=== PATIENT | female | born 1950 | race Caucasian/White ===

== ENCOUNTER 2025-01-26 16:49 | Observation (INO) ==
--- NOTE | 2025-01-26 17:08 | Emergency Department Note ---
ED Provider Note History of Present Illness Chief Complaint: Visual Disturbance Stated Complaint: STROKE-LIKE SX, SENT BY [facility] Time Seen by Provider: 01/26/25 16:57 Source: patient Mode of arrival: ambulatory Limitations: no limitations Patient is a 74-year-old female who presents to the emergency department with complaints of strokelike symptoms. The patient was referred to the emergency department by her primary care physician after having complaints of difficulty seeing out of her right eye and right sided weakness that has been ongoing for approximately 1 week. Patient is alert and oriented and not having any difficulty speaking but does note that she feels significantly more weak on her right side. Patient is unable to see anything except out of her periphery on her right eye. Patient denies any chest pain or headache at this time. Home Medications Medication Instructions Recorded Confirmed Type albuterol sulfate 90 mcg/actuation 90 mcg inhalation DAILY PRN SOB 01/26/25 01/26/25 History aerosol inhaler atorvastatin 20 mg tablet 20 mg PO HS 01/26/25 01/26/25 History duloxetine 60 mg capsule,delayed 60 mg PO HS 01/26/25 01/26/25 History release hydroxychloroquine 200 mg tablet 200 mg PO BID 01/26/25 01/26/25 History levothyroxine 150 mcg tablet 150 mcg PO QAM 01/26/25 01/26/25 History lisinopril 20 mg tablet 20 mg PO QAM 01/26/25 01/26/25 History metoprolol succinate 100 mg 100 mg PO QAM 01/26/25 01/26/25 History tablet,extended release 24 hr pantoprazole 40 mg tablet,delayed 40 mg PO 3XWK 01/26/25 01/26/25 History release sertraline 25 mg tablet 25 mg PO QAM 01/26/25 01/26/25 History Allergies Allergy/AdvReac Type Severity Reaction Status Date / Time No Known Allergies Allergy Unverified 01/26/25 18:55 Past Med/Surg History Problem List (Updated 01/26/25 @ 18:44 by CHERYL Ha) Weakness (Acute) Stroke-like symptoms (Acute) Social History Smoking Status: Former smoker Preferred Language: Lebanese Feels Safe at Home: Yes Physical Exam Vital Signs Vital Signs - 24 hr 01/26/25 16:50 01/26/25 17:21 Temperature 36.7 C Temperature Source Temporal Artery Scan Pulse Rate 84 75 Respiratory Rate 18 Blood Pressure 164/83 H Blood Pressure Mean 110 Pulse Oximetry 95 Sepsis Recent Fever Within 48 Hours No Sepsis New/Unexplained Change in Mental Status N/A Sepsis Action Taken by Nursing No Action Required VITAL SIGNS - Vital signs and nursing notes were reviewed. GENERAL -74-year-old female appearing their stated age, who is in no acute distress. Communicates well with provider and answers questions appropriately. HEAD - Normocephalic, Atraumatic. No Pleitez's Sign or Raccoon's Eyes. No depressed skull fractures palpable. EYES - PERRL with EOMI bilaterally. Sclera anicteric. Conjunctiva pink and moist with no injection noted. EARS - No deformities of external structures noted on gross examination bilaterally. NOSE - Midline and without cyanosis. No epistaxis or purulent drainage noted. MOUTH/OROPHARYNX - Without perioral cyanosis. Buccal mucosa pink and moist and without leukoplakia. NECK - Neck with FROM. Supple to palpation. No lymphadenopathy noted. LUNGS - Chest wall symmetric without accessory muscle use, intercostals retractions, or central cyanosis. Normal vesicular breath sounds CTA B/L. No wheezes, rales, or rhonchi appreciated. CARDIAC - RRR with S1/S2. No murmur, rubs, or gallops appreciated. EXTREMITIES - No edema present. +3/5 strength noted in right upper and lower extremity. The patient is able to move all extremities but does have noted weakness in her right side. NEUROLOGIC -Sensory intact to light touch throughout. PSYCH - A&Ox3 and cooperates fully with examiner. Pt is very pleasant and interacts well with examiner Course Administered Medications Discontinued Medications Ioversol (Optiray 320 125ml) 114 ml IV ONCE ONE Stop: 01/26/25 18:01 Last Admin: 01/26/25 18:00 Dose: 114 ml Documented By: EAB Ipratropium [place] (Ipratropium [place] Neb Soln 0.02% 0.5mg/2.5ml Vial) 0.5 mg NEB NOW STA Stop: 01/26/25 21:50 Last Admin: 01/26/25 21:57 Dose: 0.5 mg Documented By: TMP Levalbuterol HCl (Levalbuterol 1.25 Mg/3 Ml Neb) 1.25 mg NEB NOW STA Stop: 01/26/25 21:50 Last Admin: 01/26/25 21:57 Dose: 1.25 mg Documented By: TMP Metoprolol Tartrate (Metoprolol Tartrate 1 Mg/Ml Vial) 2.5 mg IV NOW STA Stop: 01/26/25 20:33 Last Admin: 01/26/25 21:44 Dose: 2.5 mg Documented By: KDL Medical Decision Making Differential Diagnosis CVA, TIA, generalized weakness, muscular strain, sprain, among others Medical Records Attestation: I reviewed the patient's medical records. Home Medications was personally reviewed by me Laboratory Data Attestation: I reviewed the patient's lab results. 01/26/25 17:05 01/26/25 17:05 Lab Results 01/26/25 01/26/25 Range/Units 17:05 17:15 WBC 8.02 (4.8-10.8) K/ul RBC 4.34 (4.20-5.40) M/uL Hgb 11.6 L (12.0-16.0) g/dl Hct 36.6 L (37.0-47.0) % MCV 84.3 (80.0-100.0) fL MCH 26.7 (25.0-34.0) pg MCHC 31.7 L (32.0-36.0) g/dL RDW Std Deviation 42.4 (36.4-46.3) fL RDW Coeff of Shin 13.8 (11.5-14.5) % Plt Count 217 (130-400) K/uL MPV 11.2 (9.4-12.4) fL Immature Gran % (Auto) 0.2 % Neut % (Auto) 72.5 % Lymph % (Auto) 19.8 % [place]k % (Auto) 6.7 % Eos % (Auto) 0.4 % Baso % (Auto) 0.4 % Neut # (Auto) 5.81 (1.40-6.50) K/uL Lymph # (Auto) 1.59 (1.20-3.40) K/uL Polk # (Auto) 0.54 (0.11-0.59) K/uL Eos # (Auto) 0.03 (0.00-0.50) K/uL Baso # (Auto) 0.03 (0.00-0.20) K/uL Immature Gran # (Auto) 0.02 (0.01-0.20) K/uL PT 10.6 (9.0-12.0) Seconds INR 1.0 (0.9-1.1) APTT 29 (21-31) Seconds PTT Ratio 1.1 Sodium 144 (136-145) mmol/L Potassium 3.9 (3.5-5.1) mmol/L Chloride 105 (98-107) mmol/L Carbon Dioxide 30 (21-32) mmol/L Anion Gap 9 (3-11) BUN 20 (6-23) mg/dl Creatinine 1.50 H (0.6-1.2) mg/dl Est Cr Clr Drug Dosing 40.8 ml/min eGFR 36.34 BUN/Creatinine Ratio 13.3 (10-20) Glucose 125 H (70-99(Fasting)) mg/dl Calcium 9.7 (8.6-10.3) mg/dl Magnesium 1.9 (1.7-2.4) mg/dl Total Bilirubin 0.5 (0.2-1.0) mg/dl AST 25 (13-39) U/L ALT 18 (7-52) U/L Alkaline Phosphatase 62 (34-104) U/L Troponin I High Sens 5.0 (0-14) pg/ml Total Protein 7.7 (6.0-8.3) gm/dl Albumin 4.3 (3.4-5.0) gm/dl Globulin 3.4 (2.5-4.0) gm/dl Albumin/Globulin Ratio 1.3 (0.9-2) Blood Type B Negative Antibody Screen POSITIVE A Antibody Identification Anti-Fya Antigen Identification Fya Antigen - NEGATIVE Imaging Data Radiologist's Impression: Head CT 01/26/25 17:[address] without contrast CT angiogram of the neck CT angiogram of the brain with contrast Provided History: Neuro deficit Comparison: None Technique: HEAD CT: Using multidetector thin collimation helical acquisition technique, axial, coronal and sagittal CT images from the skull base to the vertex were obtained without intravenous contrast. HEAD and NECK CTA: During rapid bolus intravenous injection of nonionic contrast material, axial images were obtained using thin collimation multidetector helical technique from the base of the neck through the of vertex of the head. This CT angiogram data was reconstructed at thin intervals with mild overlap. 3D reconstructions were obtained. The axial source images, multiplanar reformations, 3D reconstructions in both maximum intensity projection display and volume rendered models were reviewed. Dose reduction techniques were achieved by using automatic exposure control and/or adjustment of mA and/or kV according to patient size and/or use of iterative reconstruction technique. Findings: Head CT: There is no intracranial hemorrhage, mass effect, or midline shift. Desai/white matter differentiation in both cerebral hemispheres is preserved. Ventricles are proportionate to the cerebral sulci. Head CTA demonstrates no aneurysm or stenosis of the major intracranial arteries. Neck CTA demonstrates no stenosis of the major cervical arteries. The origins of the great vessels from the aortic arch are patent. There are patchy nodular opacities throughout the posterior right upper lobe. Impression: 1. Head CTA demonstrates no aneurysm or stenosis of the major intracranial arteries, 2. Neck CTA demonstrates no stenosis of the major cervical arteries. 3. No intracranial hemorrhage on the noncontrast head CT. 4. Patchy nodular opacities throughout the posterior right upper lobe of the lung are favored infectious. Electronically signed by Alan Mendenhall 01-26-2025 6:20 PM Head CTA 01/26/25 17:[address] without contrast CT angiogram of the neck CT angiogram of the brain with contrast Provided History: Neuro deficit Comparison: None Technique: HEAD CT: Using multidetector thin collimation helical acquisition technique, axial, coronal and sagittal CT images from the skull base to the vertex were obtained without intravenous contrast. HEAD and NECK CTA: During rapid bolus intravenous injection of nonionic contrast material, axial images were obtained using thin collimation multidetector helical technique from the base of the neck through the of vertex of the head. This CT angiogram data was reconstructed at thin intervals with mild overlap. 3D reconstructions were obtained. The axial source images, multiplanar reformations, 3D reconstructions in both maximum intensity projection display and volume rendered models were reviewed. Dose reduction techniques were achieved by using automatic exposure control and/or adjustment of mA and/or kV according to patient size and/or use of iterative reconstruction technique. Findings: Head CT: There is no intracranial hemorrhage, mass effect, or midline shift. Desai/white matter differentiation in both cerebral hemispheres is preserved. Ventricles are proportionate to the cerebral sulci. Head CTA demonstrates no aneurysm or stenosis of the major intracranial arteries. Neck CTA demonstrates no stenosis of the major cervical arteries. The origins of the great vessels from the aortic arch are patent. There are patchy nodular opacities throughout the posterior right upper lobe. Impression: 1. Head CTA demonstrates no aneurysm or stenosis of the major intracranial arteries, 2. Neck CTA demonstrates no stenosis of the major cervical arteries. 3. No intracranial hemorrhage on the noncontrast head CT. 4. Patchy nodular opacities throughout the posterior right upper lobe of the lung are favored infectious. Electronically signed by Alan Mendenhall 01-26-2025 6:20 PM Neck CTA 01/26/25 17:[address] without contrast CT angiogram of the neck CT angiogram of the brain with contrast Provided History: Neuro deficit Comparison: None Technique: HEAD CT: Using multidetector thin collimation helical acquisition technique, axial, coronal and sagittal CT images from the skull base to the vertex were obtained without intravenous contrast. HEAD and NECK CTA: During rapid bolus intravenous injection of nonionic contrast material, axial images were obtained using thin collimation multidetector helical technique from the base of the neck through the of vertex of the head. This CT angiogram data was reconstructed at thin intervals with mild overlap. 3D reconstructions were obtained. The axial source images, multiplanar reformations, 3D reconstructions in both maximum intensity projection display and volume rendered models were reviewed. Dose reduction techniques were achieved by using automatic exposure control and/or adjustment of mA and/or kV according to patient size and/or use of iterative reconstruction technique. Findings: Head CT: There is no intracranial hemorrhage, mass effect, or midline shift. Desai/white matter differentiation in both cerebral hemispheres is preserved. Ventricles are proportionate to the cerebral sulci. Head CTA demonstrates no aneurysm or stenosis of the major intracranial arteries. Neck CTA demonstrates no stenosis of the major cervical arteries. The origins of the great vessels from the aortic arch are patent. There are patchy nodular opacities throughout the posterior right upper lobe. Impression: 1. Head CTA demonstrates no aneurysm or stenosis of the major intracranial arteries, 2. Neck CTA demonstrates no stenosis of the major cervical arteries. 3. No intracranial hemorrhage on the noncontrast head CT. 4. Patchy nodular opacities throughout the posterior right upper lobe of the lung are favored infectious. Electronically signed by Alan Mendenhall 01-26-2025 6:25 PM [facility] Narrative Patient is a 74-year-old female who presents to the emergency department with complaints of strokelike symptoms. The patient was referred to the emergency department by her primary care physician after having complaints of difficulty seeing out of her right eye and right sided weakness that has been ongoing for approximately 1 week. Patient is alert and oriented and not having any difficulty speaking but does note that she feels significantly more weak on her right side. Patient is unable to see anything except out of her periphery on her right eye. Patient denies any chest pain or headache at this time. Patient was evaluated by myself and findings were noted in the physical exam above. Patient was ordered IV placement, lab work, urinalysis, and CT of the head with and without contrast. Patient's lab work resulted with a normal white blood cell count of 8.02. The patient's lab work was relatively unremarkable throughout. Patient's hemoglobin and hematocrit were mildly low showed some mild anemia with a hemoglobin of 11.6 hematocrit of 36.6. Patient does not have any significant electrolyte imbalances noted. Patient's troponin was also normal at 5.0. Patient's EKG showed her to be in a normal sinus rhythm with a rate of 78. No evidence of ectopy or elevation. Patient had a CT of the head CT angio of the head and CT angio of the neck and were all interpreted by radiology. The head CTA demonstrated no aneurysm or stenosis of the major intracranial arteries. Neck CTA demonstrated no stenosis of the major cervical arteries. There was no intracranial hemorrhage or subdural hematoma or any abnormalities noted on the noncontrast head CT. Patient's imaging and lab work were both unremarkable although on exam the patient does have notable weakness on her right side. The patient still reporting vision difficulty on that right side. I discussed with the patient that her symptoms would warrant further evaluation and management and that I felt that it would be appropriate for her to be admitted to the hospital for further stroke workup and evaluation. The patient verbalized understanding and was agreeable to this plan, feeling that that would be the most appropriate thing and she felt most comfortable with that plan. I spoke with the [facility] hospitalist group regarding this patient and gave them a full report on the patient's chief complaint, current status and the results of her imaging and lab work. The [facility] hospitalist group was concerned that this should be run by [facility] ophthalmology. I reached out to [facility] to speak with the bowling ball mold assembler. I spoke with Dr. Ann of ophthalmology and gave her a full report on the patient's chief complaint, current status and the results of her imaging and lab work. She advised that she did not believe that the patient needed to have an emergent eye exam or be seen by ophthalmology tonight as her symptoms have been persistent for almost a week. She stated that she does not feel the patient needs to be transferred at this time and felt that the patient could follow-up with the ophthalmology clinic at [place] or here in [place] in the outpatient setting if she could not be evaluated here in the hospital. She noted that she felt it was appropriate for the patient to be admitted to the hospital here for further stroke workup. I have reached back out to the [facility] hospitalist group and let them know what Dr. Ann said and they verbalized understanding and were agreeable to accept the patient for admission under their service. [facility] further evaluation and management of this patient. Impression Stroke-like symptoms, Weakness Discharge Plan Visit Data Chief Complaint: Visual Disturbance Stated Complaint: STROKE-LIKE SX, SENT BY [facility] ED Provider: Clifford Robison ED Midlevel Provider: Aminah Caba Discharge Problem: Stroke-like symptoms, Weakness Patient Disposition: Admitted As Inpatient Condition: Fair Discharge Instructions Interventions: ED Discharge Assessment Last Done: 01/26/25 20:38 ED DC CONDITION Conditon at Discharge Condition at Discharge: Fair
[2025-01-26 17:26] LABS: Hematocrit (blood only) 36.6 % (37.0-47.0); Hemoglobin 11.6 g/dl (12.0-16.0); Immature Granulocytes # (auto) 0.02 K/uL (0.01-0.20); Immature Granulocytes % (auto) 0.2 %; Mean Corpuscular Hemoglobin 26.7 pg (25.0-34.0); Mean Corpuscular Volume 84.3 fL (80.0-100.0); Platelet Count 217 K/uL (130-400); RDW Standard Deviation 42.4 fL (36.4-46.3); Red Blood Count 4.34 M/uL (4.20-5.40); White Blood Count 8.02 K/ul (4.8-10.8)
[2025-01-26 17:44] LABS: Alanine Aminotransferase 18.0 U/L (7-52); Albumin Globulin Ratio 1.3 (0.9-2); Albumin Level 4.3 gm/dl (3.4-5.0); Alkaline Phosphatase 62.0 U/L (34-104); Anion Gap 9.0 (3-11); Bilirubin,Total 0.5 mg/dl (0.2-1.0); Blood Urea Nitrogen 20.0 mg/dl (6-23); Calcium 9.7 mg/dl (8.6-10.3); Carbon Dioxide 30.0 mmol/L (21-32); Chloride 105.0 mmol/L (98-107); Creatinine Clr Calc Pharmacy 40.8 ml/min; Globulin 3.4 gm/dl (2.5-4.0); Glucose 125.0 mg/dl (70-99(Fasting)); Magnesium 1.9 mg/dl (1.7-2.4); Potassium 3.9 mmol/L (3.5-5.1); Sodium 144.0 mmol/L (136-145); Total Protein 7.7 gm/dl (6.0-8.3)
[2025-01-26] MEDS: OPTIRAY 320 125ml IV ONE (18:00)
[2025-01-26 18:02] LABS: INR 1.0 (0.9-1.1); Partial Thromboplastin Time 29 Seconds (21-31); Prothrombin Time 10.6 Seconds (9.0-12.0)
--- NOTE | 2025-01-26 18:21 | CT Scan Report ---
Head CT without contrast CT angiogram of the neck CT angiogram of the brain with contrast Provided History: Neuro deficit Comparison: None Technique: HEAD CT: Using multidetector thin collimation helical acquisition technique, axial, coronal and sagittal CT images from the skull base to the vertex were obtained without intravenous contrast. HEAD and NECK CTA: During rapid bolus intravenous injection of nonionic contrast material, axial images were obtained using thin collimation multidetector helical technique from the base of the neck through the of vertex of the head. This CT angiogram data was reconstructed at thin intervals with mild overlap. 3D reconstructions were obtained. The axial source images, multiplanar reformations, 3D reconstructions in both maximum intensity projection display and volume rendered models were reviewed. Dose reduction techniques were achieved by using automatic exposure control and/or adjustment of mA and/or kV according to patient size and/or use of iterative reconstruction technique. Findings: Head CT: There is no intracranial hemorrhage, mass effect, or midline shift. Desai/white matter differentiation in both cerebral hemispheres is preserved. Ventricles are proportionate to the cerebral sulci. Head CTA demonstrates no aneurysm or stenosis of the major intracranial arteries. Neck CTA demonstrates no stenosis of the major cervical arteries. The origins of the great vessels from the aortic arch are patent. There are patchy nodular opacities throughout the posterior right upper lobe. Impression: 1. Head CTA demonstrates no aneurysm or stenosis of the major intracranial arteries, 2. Neck CTA demonstrates no stenosis of the major cervical arteries. 3. No intracranial hemorrhage on the noncontrast head CT. 4. Patchy nodular opacities throughout the posterior right upper lobe of the lung are favored infectious. Electronically signed by Alan Mendenhall 01-26-2025 6:20 PM
--- NOTE | 2025-01-26 19:34 | History & Physical Report ---
Date of Service January 26, 2025 Assessment & Plan (1) Stroke-like symptoms: (2) Weakness: Plan: 74 year old female with history of HTN, CKD 3, HLD, SLE, and other problems noted below presenting with progressive R eye vision loss and some R sided weakness since Wednesday. STROKE LIKE SYMPTOMS: R SIDED VISION LOSS AND R SIDED WEAKNESS 1. Head CTA demonstrates no aneurysm or stenosis of the major intracranial arteries, 2. Neck CTA demonstrates no stenosis of the major cervical arteries. 3. No intracranial hemorrhage on the noncontrast head CT. 4. Patchy nodular opacities throughout the posterior right upper lobe of the lung are favored infectious. will initiate stroke protocol including Brain MRI, Echo, etc start ASA 81mg and Plavix 75mg po daily already on Atorvastatin PT/OT evaluation Neurology consult ER HARMAN Caba discussed with [facility] service. They recommend inpatient evaluation for possible CVA. Since symptoms commenced a few days ago, urgent inpatient ophthalmologic evaluation and intervention not recommended at this time. They do recommend patient ff up with Ophthalmology soon after discharge. RIGHT UPPER LOBE PNEUMONIA seen on CT head and neck denies cough, fever/chills respiratory panel ordered, MRSA swab start Augmentin and Doxycycline other chronic medical problems: HYPERTENSION-- continue Lisinopril CKD 3- crea at baseline HLD- continue Atorvastatin SLE- continue Plaquenil MAHONEY'S ESOPHAGUS- Protonix DEPRESSION- continue Duloxetine, Sertraline NOCTURNAL HYPOXEMIA- 2L NC at HS DVT Prophylaxis SCDs for now Disposition admit to Telemetry Full Code total of 60 minutes spent discussing with ER provider, reviewing records, patient history and exam, etc Mirza Sanchez MD History of Present Illness Chief Complaint: progressive R eye vision loss and some R sided weakness since Wednesday Primary Care Provider: Maribell Singh DO 74 year old female with history of HTN, CKD 3, HLD, SLE, and other problems noted below presenting with progressive R eye vision loss and some R sided weakness since Wednesday. Patient was seen by her PCP in the office today and was sent over to the ER for evaluation for possible CVA. Patient reports that since Wednesday she has been having blurring of vision on the R eye while using the computer. By Wednesday, she could barely see with her R eye. Denies eye pain. She reports mild R sided weakness but this is chronic for years attributed to cervical spine and lumbar spine issues. No other new focal neurologic deficit reported. Upon ER arrival, BP 164/83, afebrile. CT head, CT angio head and neck: 1. Head CTA demonstrates no aneurysm or stenosis of the major intracranial arteries, 2. Neck CTA demonstrates no stenosis of the major cervical arteries. 3. No intracranial hemorrhage on the noncontrast head CT. 4. Patchy nodular opacities throughout the posterior right upper lobe of the lung are favored infectious. ER HARMAN Caba discussed with [facility] service. They recommend inpatient evaluation for possible CVA. Since symptoms commenced a few days ago, urgent inpatient ophthalmologic evaluation and intervention not recommended at this time. They do recommend patient ff up with Ophthalmology soon after discharge. Allergies Allergy/AdvReac Type Severity Reaction Status Date / Time No Known Allergies Allergy Unverified 01/26/25 18:55 Home Medications Medication Instructions Recorded Confirmed Type albuterol sulfate 90 mcg/actuation 90 mcg inhalation DAILY PRN SOB 01/26/25 01/26/25 History aerosol inhaler atorvastatin 20 mg tablet 20 mg PO HS 01/26/25 01/26/25 History duloxetine 60 mg capsule,delayed 60 mg PO HS 01/26/25 01/26/25 History release hydroxychloroquine 200 mg tablet 200 mg PO BID 01/26/25 01/26/25 History levothyroxine 150 mcg tablet 150 mcg PO QAM 01/26/25 01/26/25 History lisinopril 20 mg tablet 20 mg PO QAM 01/26/25 01/26/25 History metoprolol succinate 100 mg 100 mg PO QAM 01/26/25 01/26/25 History tablet,extended release 24 hr pantoprazole 40 mg tablet,delayed 40 mg PO 3XWK 01/26/25 01/26/25 History release sertraline 25 mg tablet 25 mg PO QAM 01/26/25 01/26/25 History Past Med/Surg History Problem List (Updated 01/26/25 @ 18:44 by CHERYL Ha) Weakness (Acute) Stroke-like symptoms (Acute) Social History Smoking Status: Former smoker Preferred Language: Slovenian Feels Safe at Home: Yes Review of Systems Review of Systems: all noted and negative except for above Physical Exam Physical Exam: General- oriented x 3, not in distress, speaks in sentences with no effort or accessory muscle use Head- atraumatic Eyes- PERRL, EOMI, anicteric ENT- oropharynx clear Neck- supple, no JVD, no adenopathy, no thyromegaly; carotids +2/2, no bruits appreciated Lungs- mild rhonchi and wheeze R upper lung, clear on the left Heart- normal rate, regular rhythm; no murmur, no gallop, no rub appreciated Abdomen- normal bowel sounds, nondistended, soft, nontender, no masses or hepatosplenomegaly Extremities- no pretibial edema, no calf tenderness; peripheral pulses intact Neuro- alert, oriented x 3; R eye- only has R peripheral vision 25% of visual field, otherwise CN 2-12 grossly intact; motor RUE and RLE 4/5 , L 5/5;sensation 100% on all extremities; no other gross focal neurologic deficits Skin- warm & dry Results & Data Results & Data Vital Signs (Past 12 Hours) Vital Signs Temp Pulse Pulse Resp BP BP Pulse Ox 01/26/25 19:31 174/92 H 01/26/25 19:26 67 20 192/111 H 96 01/26/25 19:26 96 01/26/25 17:21 75 01/26/25 16:50 36.7 C 84 18 164/83 H 95 O2 Del Method 01/26/25 19:31 01/26/25 19:26 Room Air 01/26/25 19:26 Room Air 01/26/25 17:21 01/26/25 16:50 all noted and reviewed including below Code Status & VTE Plan VTE Prophylaxis Plan VTE Prophylaxis will be ordered: Yes
[2025-01-26] MEDS ORDERED: ALBUTEROL HFA 8 GM INHALER INH PRN (19:59)
[2025-01-26] MEDS ORDERED: PHARMACIST DISCHARGE MED REC CONSULT PRN (21:19)
[2025-01-26] MEDS ORDERED: ACETAMINOPHEN 325 MG TAB PO PRN (21:19)
[2025-01-26] MEDS: METOPROLOL TARTRATE 1 MG/ML VIAL IV STA (21:44)
[2025-01-26] MEDS ORDERED: LEVALBUTEROL 1.25 MG/3 ML NEB NEB PRN (21:49)
[2025-01-26] MEDS ORDERED: IPRATROPIUM BROMIDE NEB SOLN 0.02% 0.5MG/2.5ML VIAL NEB PRN (21:49)
[2025-01-26] MEDS: LEVALBUTEROL 1.25 MG/3 ML NEB NEB STA (21:57)
[2025-01-26] MEDS: IPRATROPIUM BROMIDE NEB SOLN 0.02% 0.5MG/2.5ML VIAL NEB STA (21:57)
[2025-01-26 22:12] LABS: Chlamydia pneumoniae PCR Not Detected (NotDetected); Coronavirus 229E PCR Not Detected (NotDetected); Coronavirus CoV-2 (COVID19)PCR Not Detected (NotDetected); Coronavirus HKU1 PCR Not Detected (NotDetected); Coronavirus NL63 PCR Not Detected (NotDetected); Coronavirus OC43PCR Not Detected (NotDetected); Human Metapneumovirus PCR Not Detected (NotDetected); Parainfluenza Virus 1 PCR Not Detected (NotDetected); Parainfluenza Virus 2 PCR Not Detected (NotDetected); Parainfluenza Virus 3 PCR Not Detected (NotDetected); Parainfluenza Virus 4 PCR Not Detected (NotDetected); Respiratory Syncytial VirusPCR Not Detected (NotDetected); Rhinovirus/Enterovirus PCR Not Detected (NotDetected)
[2025-01-26 22:14] LABS: Appearance Urine Clear (Clear); Bacteria Urine Automated 4+ (None Seen); Cast Urine Automated 0-2 /lpf (0-2); Glucose Urine UA Negative (Negative); WBC Urine Automated 0-5 /hpf (0-5)
[2025-01-26] MEDS: ATORVASTATIN 20 MG TAB PO SCH (22:18)
[2025-01-26] MEDS: ASPIRIN 81 MG ECTAB PO SCH (22:19)
[2025-01-26] MEDS: HYDROXYCHLOROQUINE SULFATE 200 MG TAB PO SCH (22:19)
[2025-01-26] MEDS: DOXYCYCLINE HYCLATE 100 MG CAP PO SCH (22:19)
[2025-01-26] MEDS: CLOPIDOGREL BISULFATE 75 MG TAB PO SCH (22:19)
--- NOTE | 2025-01-27 00:20 | Magnetic Resonance Report ---
Exam(s): MRI HEAD Without Contrast EXAM: MR Head Without Intravenous Contrast CLINICAL HISTORY: Reason for exam: r eye loss of vision, r sided weakness. TECHNIQUE: Magnetic resonance images of the head/brain without intravenous contrast in multiple planes. COMPARISON: Head CT 02/22/2025 FINDINGS: Brain: Unremarkable. No mass. No hemorrhage. No acute infarct. Ventricles: Unremarkable. No ventriculomegaly. Bones/joints: Unremarkable. No acute fracture. Sinuses: Unremarkable as visualized. No acute sinusitis. Mastoid air cells: Unremarkable as visualized. No mastoid effusion. Orbits: Unremarkable as visualized. IMPRESSION: No acute intracranial abnormality. Electronically signed by: Babar Pop MD 01/27/25 00:19 AM
[2025-01-27] MEDS: LEVOTHYROXINE SODIUM 150 MCG TABLET PO SCH (05:30)
[2025-01-27 06:10] LABS: Hematocrit (blood only) 35.1 % (37.0-47.0); Hemoglobin 10.9 g/dl (12.0-16.0); Immature Granulocytes # (auto) 0.01 K/uL (0.01-0.20); Immature Granulocytes % (auto) 0.2 %; Mean Corpuscular Hemoglobin 26.7 pg (25.0-34.0); Mean Corpuscular Volume 86.0 fL (80.0-100.0); Platelet Count 165 K/uL (130-400); RDW Standard Deviation 43.6 fL (36.4-46.3); Red Blood Count 4.08 M/uL (4.20-5.40); White Blood Count 6.60 K/ul (4.8-10.8)
[2025-01-27 06:25] LABS: Alanine Aminotransferase 16.0 U/L (7-52); Albumin Globulin Ratio 1.3 (0.9-2); Albumin Level 3.8 gm/dl (3.4-5.0); Alkaline Phosphatase 53.0 U/L (34-104); Anion Gap 5.0 (3-11); Bilirubin,Total 0.5 mg/dl (0.2-1.0); Blood Urea Nitrogen 19.0 mg/dl (6-23); Calcium 9.3 mg/dl (8.6-10.3); Carbon Dioxide 31.0 mmol/L (21-32); Chloride 104.0 mmol/L (98-107); Cholesterol 120.0 mg/dl (0-200); Creatinine Clr Calc Pharmacy 44.4 ml/min; Globulin 3.0 gm/dl (2.5-4.0); Glucose 96.0 mg/dl (70-99(Fasting)); HDL Cholesterol 41.0 mg/dl; Potassium 3.8 mmol/L (3.5-5.1); Sodium 140.0 mmol/L (136-145); Total Protein 6.8 gm/dl (6.0-8.3); Triglycerides 142.0 mg/dl (0-150)
[2025-01-27 07:40] LABS: Hemoglobin A1C 5.5 % (4.5-5.6)
[2025-01-27] MEDS: ADVANCED PROBIOTIC 625 MG CAPSULE PO SCH (08:26)
[2025-01-27] MEDS: METOPROLOL SUCC 50MG EXT REL TAB PO SCH (08:26)
[2025-01-27] MEDS: SERTRALINE HCL 50 MG TABLET PO SCH (08:27)
[2025-01-27] MEDS: AMOXICILLIN/CLAVULANATE 875 MG TAB PO SCH (09:37)
[2025-01-27 10:58] VITALS: RESP 21
--- NOTE | 2025-01-27 11:49 | Electrocardiogram Report ---
Test Reason : Blood Pressure : */* mmHG Vent. Rate : 78 BPM Atrial Rate : 78 BPM P-R Int : 180 ms QRS Dur : 106 ms QT Int : 420 ms P-R-T Axes : 64 -17 64 degrees QTcB Int : 478 ms Normal sinus rhythm Normal ECG No previous ECGs available Confirmed by Michele Daniels ([id number]) on 01/27/2025 11:48:34 AM Referred By: Confirmed By: Michele Daniels
--- NOTE | 2025-01-27 12:38 | XCELERA ---
[id number]
--- NOTE | 2025-01-27 15:35 | Neurology Consultation ---
Date of Consultation January 27, 2025 Assessment & Plan (1) Branch retinal artery occlusion of right eye: Right Nasal visual field cut suggesting a possible branch retina artery occlusion of the right eye MRI of the brain was reviewed and shows no acute ischemic changes Plan Agree with using aspirin and Plavix in addition to high-dose statin for 21 days can be followed later by a single antiplatelet agent preferably Plavix. Recommend a Zio patch upon discharge. Follow-up with ophthalmology as outpatient. PT OT. Telehealth Consultation Telehealth Information Telehealth Information: I performed this visit using a real-time telehealth connection between my location and the patients location ([facility]). After connecting through interactive tele-video, patient was identified by name and date of and/or wristband check.Patient (or authorized healthcare patient intake representative) was informed that this was a telemedicine visit and it was being conducted confidentially over secure lines. My office door was closed and no one else was present in the room with me.Patient (or authorized healthcare patient intake representative) provided consent to proceed with the visit, expressed an understanding of privacy and security of the telemedicine visit, and gave permission to have a hospital patient intake representative in the room in order to assist with the visit and to conduct portions of the visit, as needed. I informed the patient (or authorized healthcare patient intake representative) that I reviewed their record and presented the opportunity for them to ask any questions regarding the visit today. The patient agreed to participate. History of Present Illness Reason for Consultation: Visual changes Requesting Physician: Isaac Carver DO Attending Physician: Isaac Carver DO History of Present Illness 74-year-old female patient with an extensive PMH including HTN, CKD stage III, SLE, right hand trigger finger, ulnar neuropathy status post transposition with chronic right upper extremity numbness, chronic polyarthritis. The patient presented to the hospital after acute onset of visual changes affecting the right eye where she feels that the left half of her right eye (nasal side )is black and she can see only outward vision. This started about 2 days ago the patient was evaluated by her development executive who sent her to the emergency room to be evaluated for stroke/branch retinal artery occlusion. The patient tells me that her vision remains the same, she did report right upper extremity numbness that is chronic and has been present present for about 4 to 5 years she does not understand why, however however she reports a surgery of ulnar nerve transposition. She also received an injection in her right knee and occasionally reports numbness in her right lower extremity. She denies any new focal neurological deficit except for the visual changes. Allergies Allergy/AdvReac Type Severity Reaction Status Date / Time No Known Allergies Allergy Unverified 01/26/25 18:55 Home Medications Medication Instructions Recorded Confirmed Type albuterol sulfate 90 mcg/actuation 90 mcg inhalation DAILY PRN SOB 01/26/25 01/26/25 History aerosol inhaler atorvastatin 20 mg tablet 20 mg PO HS 01/26/25 01/26/25 History duloxetine 60 mg capsule,delayed 60 mg PO HS 01/26/25 01/26/25 History release hydroxychloroquine 200 mg tablet 200 mg PO BID 01/26/25 01/26/25 History levothyroxine 150 mcg tablet 150 mcg PO QAM 01/26/25 01/26/25 History lisinopril 20 mg tablet 20 mg PO QAM 01/26/25 01/26/25 History metoprolol succinate 100 mg 100 mg PO QAM 01/26/25 01/26/25 History tablet,extended release 24 hr pantoprazole 40 mg tablet,delayed 40 mg PO 3XWK 01/26/25 01/26/25 History release sertraline 25 mg tablet 25 mg PO QAM 01/26/25 01/26/25 History Patient History Social History Smoking Status: Former smoker Smoking End Date: 2008; Second Hand Exposure: No; Hx Alcohol Use: No Hx Substance Use: No Preferred Language: Slovak Communication Ability: Effective Nuclear Technologist Required: No Beliefs That Will Affect Care: None Current Living Situation: Alone Current Living Situation Comment: Lives at house alone- son lives nearby in [facility] Feels Safe at Home: Yes Safety Concerns: Feels Safe At This Time Assistive Devices: Cane, Denture - Upper, Denture - Lower and Walker Review of Systems negative except for the points mentioned in HPI Physical Exam General Constitutional: Appearance normally developed Head and face: normocephalic and atraumatic Eyes: no ptosis, no anisocoria, and no dysconjugate gaze Respiratory: normal effort Cardiovascular: regular rhythm and regular rate Abdomen: non distended Skin: no rashes, lesions, or ulcers noted Psychiatric: normal judgement and insight, normal mood, and normal affect NEUROLOGIC EXAMINATION: Mental Status:alert, oriented to time, place, person, normal recent memory, normal remote memory, normal attention span, normal concentration, normal language and normal fund of knowledge Cranial Nerves: CN 2 - nasal field defect of the right eye confrontation and pupils round, equal, reactive to light CN 3, 4, 6 - extra-ocular movements intact and no nystagmus CN 5 - facial sensation intact CN 7 - no facial asymmetry CN 8 - intact hearing CN 9, 10 - palate symmetric, normal gag CN 11 - good shoulder shrug CN 12 - tongue midline MOTOR: Strength was at least antigravity throughout, Pronator drift was absent and There were no abnormal movements SENSATION: decreassed sensation ove the right arm, not the forarm,. right g GAIT: did not test COORDINATION: no ataxia with finger to nose testing and heel to ruiz testing REFLEXES: cannot assess over telemedicine NIH Stroke Scale: 1a. Level of Consciousness: alert = 0 1b. LOC Questions: (month, age): both correct = 0 1c. LOC Commands (open and close eyes, make fist and let go using non-paretic hand): obeys both correctly = 0 2. Best Gaze (eyes open and patient follows examiner's finger or face): normal = 0 3. Visual (visual threat or finger counting in each quadrant): hemianopsia = 2 4. Facial Palsy (show teeth, raise eye brows and squeeze eyes shut, or grimace symmetry in a comatose patient): normal = 0 5a. Motor Arm (extend arm (palms down) to 90 degrees and score drift/movement (10 seconds) - Left: no drift = 0 5b. Motor Arm: (extend arm (palms down) to 90 degrees and score drift/movement (10 seconds) - Right: no drift = 0 6a. Motor Leg (elevate leg 30 degrees and score drift/ movement (5 seconds) - Left: no drift = 0 6b. Motor Leg (elevate leg 30 degrees and score drift/ movement (5 seconds) - Right: no drift = 0 7. Limb Ataxia (finger to nose, heel down ruiz): absent = 0 8. Sensory (pin prick to face, arm, trunk and leg, compare side to side):decreased sensation :1 9. Best Language: no aphasia = 0 10. Dysarthria (evaluate speech clarity by patient repeating listed words): normal articulation = 0 11. Extinction and Inattention: no neglect = 0 Total: 3 Results & Data Vital Signs (Past 12 Hours) Vital Signs Temp Pulse Pulse Resp BP Pulse Ox O2 Del Method 01/27/25 13:01 66 01/27/25 10:57 36.8 C 62 21 125/67 93 Room Air 01/27/25 08:00 60 01/27/25 08:00 Room Air 01/27/25 07:10 36.9 C 60 20 150/81 H 92 Room Air Laboratory Results Laboratory Results - last 24 hr 01/26/25 01/26/25 01/26/25 17:05 17:15 20:43 WBC 8.02 RBC 4.34 Hgb 11.6 L Hct 36.6 L MCV 84.3 MCH 26.7 MCHC 31.7 L RDW Std Deviation 42.4 RDW Coeff of Shin 13.8 Plt Count 217 MPV 11.2 Immature Gran % (Auto) 0.2 Neut % (Auto) 72.5 Lymph % (Auto) 19.8 [place] % (Auto) 6.7 Eos % (Auto) 0.4 Baso % (Auto) 0.4 Neut # (Auto) 5.81 Lymph # (Auto) 1.59 [place] # (Auto) 0.54 Eos # (Auto) 0.03 Baso # (Auto) 0.03 Immature Gran # (Auto) 0.02 PT 10.6 INR 1.0 APTT 29 PTT Ratio 1.1 Sodium 144 Potassium 3.9 Chloride 105 Carbon Dioxide 30 Anion Gap 9 BUN 20 Creatinine 1.50 H Est Cr Clr Drug Dosing 40.8 eGFR 36.34 BUN/Creatinine Ratio 13.3 Glucose 125 H Estimat Average Glucose Hemoglobin A1c Calcium 9.7 Magnesium 1.9 Total Bilirubin 0.5 AST 25 ALT 18 Alkaline Phosphatase 62 Troponin I High Sens 5.0 Total Protein 7.7 Albumin 4.3 Globulin 3.4 Albumin/Globulin Ratio 1.3 Triglycerides Cholesterol LDL Cholesterol, Calc VLDL Cholesterol, Calc HDL Cholesterol Cholesterol/HDL Ratio Procalcitonin Urine Color Urine Appearance Urine pH Ur Specific [place] Urine Protein Urine Glucose (UA) Urine Ketones Urine Blood Urine Nitrite Urine Bilirubin Urine Urobilinogen Ur Leukocyte Esterase Urine WBC (Auto) Urine RBC (Auto) U Hyaline Cast (Auto) U Epithel Cells (Auto) Urine Bacteria (Auto) Urine Comment Nasal Screen MRSA (PCR) Negative Adenovirus (PCR) Not Detected B. pertussis DNA (PCR) Not Detected B.parapertussis DNA PCR Not Detected C. pneumoniae DNA (PCR) Not Detected Coronavirus OC43 (PCR) Not Detected Coronavirus HKU1 (PCR) Not Detected Coronavirus 229E (PCR) Not Detected SARS-CoV-2 (PCR) Not Detected Coronavirus NL63 (PCR) Not Detected Human Metapneumovir PCR Not Detected Influenza Type A (PCR) Not Detected Influenza Type B (PCR) Not Detected M. pneumoniae (PCR) Not Detected Parainfluenza 1 (PCR) Not Detected Parainfluenza 2 (PCR) Not Detected Parainfluenza 3 (PCR) Not Detected Parainfluenza 4 (PCR) Not Detected RSV (PCR) Not Detected Entero/Rhino (PCR) Not Detected Blood Type B Negative Blood Type Recheck Antibody Screen POSITIVE A Antibody Identification Anti-Fya Antibody ID Comment Pending Antigen Identification Fya Antigen - NEGATIVE 01/26/25 01/27/25 01/27/25 Unknown 05:18 07:30 WBC 6.60 RBC 4.08 L Hgb 10.9 L Hct 35.1 L MCV 86.0 MCH 26.7 MCHC 31.1 L RDW Std Deviation 43.6 RDW Coeff of Shin 14.0 Plt Count 165 MPV 11.1 Immature Gran % (Auto) 0.2 Neut % (Auto) 67.2 Lymph % (Auto) 21.7 [place] % (Auto) 9.5 Eos % (Auto) 1.1 Baso % (Auto) 0.3 Neut # (Auto) 4.44 Lymph # (Auto) 1.43 [place] # (Auto) 0.63 H Eos # (Auto) 0.07 Baso # (Auto) 0.02 Immature Gran # (Auto) 0.01 PT INR APTT PTT Ratio Sodium 140 Potassium 3.8 Chloride 104 Carbon Dioxide 31 Anion Gap 5 BUN 19 Creatinine 1.38 H Est Cr Clr Drug Dosing 44.4 eGFR 40.17 BUN/Creatinine Ratio 13.8 Glucose 96 Estimat Average Glucose 111 Hemoglobin A1c 5.5 Calcium 9.3 Magnesium Total Bilirubin 0.5 AST 20 ALT 16 Alkaline Phosphatase 53 Troponin I High Sens Total Protein 6.8 Albumin 3.8 Globulin 3.0 Albumin/Globulin Ratio 1.3 Triglycerides 142 Cholesterol 120 LDL Cholesterol, Calc 51 VLDL Cholesterol, Calc 28 HDL Cholesterol 41 Cholesterol/HDL Ratio 2.9 Procalcitonin 0.03 Urine Color Yellow Urine Appearance Clear Urine pH 7.0 Ur Specific [place] > 1.045 H Urine Protein Negative Urine Glucose (UA) Negative Urine Ketones Negative Urine Blood Negative Urine Nitrite Positive A Urine Bilirubin Negative Urine Urobilinogen Negative Ur Leukocyte Esterase Trace H Urine WBC (Auto) 0-5 Urine RBC (Auto) 3-5 H U Hyaline Cast (Auto) 0-2 U Epithel Cells (Auto) 3-5 H Urine Bacteria (Auto) 4+ H Urine Comment Nasal Screen MRSA (PCR) Adenovirus (PCR) B. pertussis DNA (PCR) B.parapertussis DNA PCR C. pneumoniae DNA (PCR) Coronavirus OC43 (PCR) Coronavirus HKU1 (PCR) Coronavirus 229E (PCR) SARS-CoV-2 (PCR) Coronavirus NL63 (PCR) Human Metapneumovir PCR Influenza Type A (PCR) Influenza Type B (PCR) M. pneumoniae (PCR) Parainfluenza 1 (PCR) Parainfluenza 2 (PCR) Parainfluenza 3 (PCR) Parainfluenza 4 (PCR) RSV (PCR) Entero/Rhino (PCR) Blood Type Blood Type Recheck B Negative Antibody Screen Antibody Identification Antibody ID Comment Antigen Identification Diagnostic Findings Workup so far included CT scan of the head that showed no acute ischemic injuries. CTA showed scattered atherosclerotic disease does have atherosclerosis within the bifurcations without any significant stenosis. MRI of the brain shows no acute ischemic changes. Chronic microangiopathy. Echocardiogram shows LVEF 50-60%, grade 1 diastolic dysfunction, nondilated cardiac chambers, bubble study is negative. EKG is NSR. Medications Administered Home Medications Medication Instructions Recorded Confirmed Last Taken albuterol sulfate 90 mcg/actuation 90 mcg inhalation DAILY PRN SOB 01/26/25 01/26/25 Unknown aerosol inhaler atorvastatin 20 mg tablet 20 mg PO HS 01/26/25 01/26/25 Unknown duloxetine 60 mg capsule,delayed 60 mg PO HS 01/26/25 01/26/25 Unknown release hydroxychloroquine 200 mg tablet 200 mg PO BID 01/26/25 01/26/25 01/26/25 levothyroxine 150 mcg tablet 150 mcg PO QAM 01/26/25 01/26/25 01/26/25 lisinopril 20 mg tablet 20 mg PO QAM 01/26/25 01/26/25 01/26/25 metoprolol succinate 100 mg 100 mg PO QAM 01/26/25 01/26/25 01/26/25 tablet,extended release 24 hr pantoprazole 40 mg tablet,delayed 40 mg PO 3XWK 01/26/25 01/26/25 Unknown release sertraline 25 mg tablet 25 mg PO QA 01/26/25 01/26/25 01/26/25 Active Medications Generic Name Dose Route Start Last Admin Trade Name Rossi PRN Reason Stop Dose Admin Amoxicillin/Clavulanate Potassium 1 tab 01/27/25 08:00 01/27/25 09:37 Amoxicillin/Clavulanate 875 Mg Tab PO 02/01/25 07:59 1 tab BIDM WENDY Administration Protocol Aspirin 81 mg 01/26/25 20:00 01/26/25 22:19 Aspirin 81 Mg Ectab PO 02/25/25 19:59 81 mg Q24H WENDY Administration Atorvastatin Calcium 20 mg 01/26/25 21:00 01/26/25 22:18 Atorvastatin 20 Mg Tab PO 02/25/25 20:59 20 mg HS WENDY Administration Clopidogrel Bisulfate 75 mg 01/26/25 21:00 01/26/25 22:19 Clopidogrel Bisulfate 75 Mg Tab PO 02/25/25 20:59 75 mg Q24H WENDY Administration Doxycycline Hyclate 100 mg 01/26/25 21:00 01/27/25 08:26 Doxycycline Hyclate 100 Mg Cap PO 01/31/25 20:59 100 mg BID WENDY Administration Duloxetine HCl 60 mg 01/26/25 21:00 01/26/25 22:19 Duloxetine Hcl 60 Mg Cap PO 02/25/25 20:59 60 mg HS WENDY Administration Hydroxychloroquine Sulfate 200 mg 01/26/25 21:00 01/27/25 08:26 Hydroxychloroquine Sulfate 200 Mg Tab PO 02/25/25 20:59 200 mg BID WENDY Administration Lactobacillus Acidophilus 1,250 mg 01/27/25 09:00 01/27/25 08:26 Advanced Probiotic 625 Mg Capsule PO 02/26/25 08:59 1,250 mg DAILY WENDY Administration Levothyroxine Sodium 150 mcg 01/27/25 06:30 01/27/25 05:30 Levothyroxine Sodium 150 Mcg Tablet PO 02/26/25 06:29 150 mcg DAILYBB WENDY Administration Lisinopril 20 mg 01/27/25 09:00 01/27/25 08:26 Lisinopril 20 Mg Tab PO 02/26/25 08:59 20 mg QAM WENDY Administration Metoprolol Succinate 100 mg 01/27/25 09:00 01/27/25 08:26 Metoprolol Succ 50mg Ext Rel Tab PO 02/26/25 08:59 100 mg QAM WENDY Administration Pantoprazole Sodium 40 mg 01/27/25 09:00 01/27/25 08:26 Pantoprazole 40 Mg Tab PO 02/26/25 08:59 40 mg [id number] WENDY Administration Sertraline HCl 25 mg 01/27/25 09:00 01/27/25 08:27 Sertraline Hcl 50 Mg Tablet PO 02/26/25 08:59 25 mg QAM WENDY Administration
[2025-01-27 15:53] VITALS: BP 164/94; PULSE 62; TEMP 98.1; O2SAT 92
[2025-01-27] MEDS ORDERED: STROKE PATIENT DISCHARGE STA (16:43)
--- NOTE | 2025-01-27 16:51 | Discharge Summary ---
Discharge Summary Date of Service January 27, 2025 Principal Dx & Hospital Course #1 = Principal Diagnosis (1) Stroke-like symptoms: (2) Weakness: 74 year old female with history of HTN, CKD 3, HLD, SLE, presents with progressive R eye vision loss x 5 days. There was documentation of RUE weakness however patient states her RUE is weak due to arthritis and this has been stable for years. She notified her PCP and was directed to ED yesterday. CTH CTA wi thout acute intracranial pathology. MRI brain without acute pathology. TTE essentially normal other than diastolic dysfunction grade I. 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 Neuro recommends DAPT x 21 days. She will then continue ASA monotherapy. her lipitor increased to 40mg daily. PT recommending rollator and home care. patient states she already has these services. Of note, the CT neck incidentally showed upper lobe infiltrates. she was placed on augmentin+ doxy yesterday on admission. She was completely asymptomatic. no fever or leukocytosis. Procal checked this AM and is normal. There is absolutely no role in abx in this incidental finding. she was advised to ask her PCP for a dedicated CT w/o contrast in 4 weeks to document resolution. She was instructed to f/u with optho DESIRAE, preferably this week. She will f/u with neuro as OP as well. She feels well today and wishes to go home. She has no complaints other than her R eye vision loss. She does not drive and does not own a car. vitals and labs are stable for dc home. Notes For Next Care Provider Medication Changes From Visit DAPT x 21 days, then ASA monotherapy Lipitor increased to 40 Admission HPI Per Admitting Provider 74 year old female with history of HTN, CKD 3, HLD, SLE, and other problems noted below presenting with progressive R eye vision loss and some R sided weakness since Wednesday. Patient was seen by her PCP in the office today and was sent over to the ER for evaluation for possible CVA. Patient reports that since Wednesday she has been having blurring of vision on the R eye while using the computer. By Wednesday, she could barely see with her R eye. Denies eye pain. She reports mild R sided weakness but this is chronic for years attributed to cervical spine and lumbar spine issues. No other new focal neurologic deficit reported. Upon ER arrival, BP 164/83, afebrile. CT head, CT angio head and neck: 1. Head CTA demonstrates no aneurysm or stenosis of the major intracranial arteries, 2. Neck CTA demonstrates no stenosis of the major cervical arteries. 3. No intracranial hemorrhage on the noncontrast head CT. 4. Patchy nodular opacities throughout the posterior right upper lobe of the lung are favored infectious. ER HARMAN Caba discussed with [facility] Ophthalmology service. They recommend inpatient evaluation for possible CVA. Since symptoms commenced a few days ago, urgent inpatient ophthalmologic evaluation and intervention not recommended at this time. They do recommend patient ff up with Ophthalmology soon after discharge. Discharge Exam Vitals and labs reviewed General: Well appearing, NAD HEENT: EOMI, PERRLA Neck: Supple Cardiac: RRR no rubs gallops or murmurs Lungs: CTA no rhonchi wheezing or rales Abd: S NT ND BS positive : Deffered MSK: Full ROM. No obvious deformities Ext: No Edema cyanosis Skin: Warm, Dry Neuro: AOx3 No weakness or paresthesia. Decreased acuity R eye Psych: Normal Mood Updated Medication List Medication Instructions Recorded Confirmed Type albuterol sulfate 90 mcg/actuation 90 mcg inhalation DAILY PRN SOB 01/26/25 01/26/25 History aerosol inhaler atorvastatin 20 mg tablet 20 mg PO HS 01/26/25 01/26/25 History duloxetine 60 mg capsule,delayed 60 mg PO HS 01/26/25 01/26/25 History release hydroxychloroquine 200 mg tablet 200 mg PO BID 01/26/25 01/26/25 History levothyroxine 150 mcg tablet 150 mcg PO QAM 01/26/25 01/26/25 History lisinopril 20 mg tablet 20 mg PO QAM 01/26/25 01/26/25 History metoprolol succinate 100 mg 100 mg PO QAM 01/26/25 01/26/25 History tablet,extended release 24 hr pantoprazole 40 mg tablet,delayed 40 mg PO 3XWK 01/26/25 01/26/25 History release sertraline 25 mg tablet 25 mg PO QAM 01/26/25 01/26/25 History aspirin 81 mg tablet,delayed 81 mg PO Q24H 30 days #30 tabs 01/27/25 Rx release atorvastatin 40 mg tablet (Lipitor) 40 mg PO HS 30 days #30 tabs 01/27/25 Rx clopidogrel 75 mg tablet 75 mg PO Q24H 21 days #21 tabs 01/27/25 Rx Hospital Stay Data Consultations 01/26/25 19:32 ED Decision to Admit Stat 01/26/25 21:19 Consult Neurology Routine Diagnostic Imagining Performed 01/26/25 17:02 CT angio head w con Stat CT angio neck with con Stat CT head/brain wo con Stat 01/26/25 21:19 MR brain wo con Routine Pending Results Patient Have Any Pending Studies at Discharge: No Discharge Instructions Given to Patient (Per Discharging Provider) You were admitted for R eye loss of vision. Your MRI brain was negative for stroke. Your neurologist believes you the artery supplying blood to your eye is occluded. 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 Please take aspirin and plavix for 21 days, then stop taking plavix and continue aspirin. Increase the dose of your lipitor to 40mg daily. Call your PCP's office to get a Zio patch (cardiac catheterization technician). Please follow up with ophthalmology DESIRAE next week and neurology (Dr Terri Carver) within the next month. The CT scan incidentally found a small area of pneumonia. please ask your PCP to check a CT chest in 4 weeks to document resolution. Total Time Total Time Spent Total Time Spent (In Minutes): 44
--- NOTE | 2025-01-31 14:48 | Pharmacy Report ---
Pharmacist Stroke Counseling - Date of Service January 31, 2025 - Scope: Pharmacy has been consulted to provide medication discharge counseling for this patient admitted with retinal artery occlusion as per the Pharmacist Discharge Counseling for Stroke Patients Protocol. - Medications on Discharge: Home Medications Medication Instructions Recorded Confirmed albuterol sulfate 90 mcg/actuation 90 mcg inhalation DAILY PRN SOB 01/26/25 01/26/25 aerosol inhaler duloxetine 60 mg capsule,delayed 60 mg PO HS 01/26/25 01/26/25 release hydroxychloroquine 200 mg tablet 200 mg PO BID 01/26/25 01/26/25 levothyroxine 150 mcg tablet 150 mcg PO QAM 01/26/25 01/26/25 lisinopril 20 mg tablet 20 mg PO QAM 01/26/25 01/26/25 metoprolol succinate 100 mg 100 mg PO QAM 01/26/25 01/26/25 tablet,extended release 24 hr pantoprazole 40 mg tablet,delayed 40 mg PO 3XWK 01/26/25 01/26/25 release sertraline 25 mg tablet 25 mg PO QAM 01/26/25 01/26/25 New Rx's Medication Instructions Recorded aspirin 81 mg tablet,delayed 81 mg PO Q24H 30 days #30 tabs 01/27/25 release atorvastatin 40 mg tablet (Lipitor) 40 mg PO HS 30 days #30 tabs 01/27/25 clopidogrel 75 mg tablet 75 mg PO Q24H 21 days #21 tabs 01/27/25 - Action: The above medications, specifically ones for stroke treatment/prophylaxis, have been reviewed in detail with the patient and/or patient sales promotion representative(s) prior to discharge. This includes indication, common adverse reactions, drug interactions, and medication administration. Medication counseling has been employed using the teach-back method to ensure understanding. - Outcome: The patient and/or patient sales promotion representative(s) have demonstrated understanding of the medications. Additional comments: - counseled on new rx's for aspirin and plavix - patient had all questions answered and was very appreciate of the service/care she received at [facility] - follow up appointments scheduled, trying to get into ophthalmology Thank you for allowing pharmacy to be involved in the care of this patient. Please call [phone] with any additional questions
== END 2025-01-27 17:31 | disposition home or self-care (01) ==
LOC: ED 16:49 → 4W 16:49 → SUATTDRO 19:22 → 4W 20:38

== ENCOUNTER 2025-02-10 23:55 | Inpatient (IN) ==
[2025-02-11] MEDS ORDERED: SODIUM CHLORIDE 0.9% 100 ML IV PRN ×2 (00:48→02:01)
[2025-02-11] MEDS: PANTOprazole 40 MG/10 ML SYR IV ONE (00:54)
[2025-02-11] MEDS: SODIUM CHLORIDE 0.9% 500 ML IV ONE (00:54)
[2025-02-11 01:04] LABS: Alanine Aminotransferase 13.0 U/L (7-52); Albumin Globulin Ratio 1.1 (0.9-2); Albumin Level 3.6 gm/dl (3.4-5.0); Alkaline Phosphatase 49.0 U/L (34-104); Anion Gap 8.0 (3-11); Bilirubin,Total 0.3 mg/dl (0.2-1.0); Blood Urea Nitrogen 42.0 mg/dl (6-23); Calcium 9.6 mg/dl (8.6-10.3); Carbon Dioxide 27.0 mmol/L (21-32); Chloride 104.0 mmol/L (98-107); Creatinine Clr Calc Pharmacy 39.3 ml/min; Globulin 3.2 gm/dl (2.5-4.0); Glucose 128.0 mg/dl (70-99(Fasting)); Magnesium 2.0 mg/dl (1.7-2.4); Potassium 3.7 mmol/L (3.5-5.1); Sodium 139.0 mmol/L (136-145); Total Protein 6.8 gm/dl (6.0-8.3)
[2025-02-11 01:14] LABS: Hematocrit (blood only) 21.6 % (37.0-47.0); Hemoglobin 6.8 g/dl (12.0-16.0); Mean Corpuscular Hemoglobin 28.8 pg (25.0-34.0); Mean Corpuscular Volume 91.5 fL (80.0-100.0); Platelet Count 218 K/uL (130-400); RDW Standard Deviation 48.9 fL (36.4-46.3); Red Blood Count 2.36 M/uL (4.20-5.40); White Blood Count 9.64 K/ul (4.8-10.8)
[2025-02-11 01:19] LABS: Thyroid Stimulating Hormone 0.36 uIu/ml (0.300-4.500)
[2025-02-11 01:37] LABS: Immature Granulocytes # (auto) 0.07 K/uL (0.01-0.20); Immature Granulocytes % (auto) 0.7 %; Polychromasia 2+; Toxic Vacuolation 1+
--- NOTE | 2025-02-11 01:51 | History & Physical Report ---
Date of Service February 11, 2025 Assessment & Plan (1) SOB (shortness of breath): Plan: Assessment and plan below following discussion of case with ED provider and reviewing patient history/pertinent normal/abnormal diagnostic test results. Shortness of breath Multifactorial Pulmonary congestion UGIB History of Rowland's esophagus Recent DAPT Rx for possible central retinal artery occlusion. Acute on chronic anemia secondary to UGIB Syncope likely secondary to orthostasis from blood loss hypertension, stable hyperlipidemia, on statin Rx hx COPD SLE on Plaquenil CRI, creatinine at baseline hypothyroidism, euthyroid as of recent TSH this month prediabetes, hemoglobin A1c of 5.5 this month recent diagnosis of right retinal detachment by local station manager (CRAO ruled out as etiology of blurred vision from last confinement), awaiting evaluation by station manager who can perform procedure in [place].. past tobacco abuse Admit to med/tele Lasix 1 dose Transfuse PRBC to maintain hemoglobin of at least 8 Stop DAPT IV PPI for UGIB GI consult re: UGIB N.p.o. in anticipation of endoscopy DVT prophylaxis. SCDs re: GI bleed Full code Text document was generated using [employer] voice recognition software. It may contain grammatical or spelling errors. Kindly contact undersigned for clarification of any documentation item in question. History of Present Illness Chief Complaint: Syncope, GI bleed Primary Care Provider: Maribell Singh DO History obtained from patient and records. Medical history significant for hypertension, hyperlipidemia, COPD, Rowland's esophagus, SLE on Plaquenil, CRI (baseline creatinine 1.4), hypothyroidism, prediabetes, chronic anemia (baseline hemoglobin 10-11), mood disorder, recent diagnosis of right retinal detachment, past tobacco abuse. Recent confinement 2 weeks ago for strokelike symptoms presenting as progressive right eye vision loss. Concern for branch retinal artery occlusion of the right eye following Neurology evaluation. Patient discharged on dual antiplatelet therapy (aspirin and Plavix) for 3 weeks followed by aspirin monotherapy. Outpatient ophthalmology evaluation recommended on discharge. Patient seen by local station manager from [facility] 4 days ago. Retinal detachment of the right eye noted on exam. Surgery recommended at [facility]. Patient stated preference for surgery to be done in [place] by local station manager awaiting referral from PCP. 3 days ago, patient noted dizziness described as lightheadedness especially when standing up. Exertional SOB without cough or chest pain. Denies fluid retention. 2 nights ago, patient noted achy lower abdominal pain followed by melena. Patient stopped aspirin and Plavix due to bleeding concerns. Patient intended to mention symptoms to PCP on scheduled appointment this week. Transient syncopal event preceded by lightheadedness at home last night witnessed by family. Patient was just out for a few seconds. No witnessed seizures. No headache or trauma. Patient brought to ER for evaluation. IV Protonix and 1 unit PRBC administered at the ER. Medical History as above 2021 EGD showed Rowland's esophagus C2 M3, hiatal hernia 2021 colonoscopy showed diverticulosis, polyps and ascending colon lipoma Surgical History : Cystoscopy, shoulder surgery, hysterectomy, foot surgery, elbow surgery, vaginal sling procedure, bunion surgery Family History : COPD, cirrhosis, kidney cancer Personal/Social history : Past tobacco abuse, no EtOH intake, seamstress Allergies Allergy/AdvReac Type Severity Reaction Status Date / Time No Known Allergies Allergy Unverified 01/26/25 18:55 Home Medications Medication Instructions Recorded Confirmed Type albuterol sulfate 90 mcg/actuation 90 mcg inhalation DAILY PRN SOB 01/26/25 02/11/25 History aerosol inhaler duloxetine 60 mg capsule,delayed 60 mg PO HS 01/26/25 02/11/25 History release hydroxychloroquine 200 mg tablet 200 mg PO BID 01/26/25 02/11/25 History levothyroxine 150 mcg tablet 150 mcg PO QAM 01/26/25 02/11/25 History lisinopril 20 mg tablet 20 mg PO QAM 01/26/25 02/11/25 History metoprolol succinate 100 mg 100 mg PO QAM 01/26/25 02/11/25 History tablet,extended release 24 hr pantoprazole 40 mg tablet,delayed 40 mg PO 3XWK 01/26/25 02/11/25 History release sertraline 25 mg tablet 25 mg PO QAM 01/26/25 02/11/25 History aspirin 81 mg tablet,delayed 81 mg PO DAILY 02/11/25 02/11/25 History release atorvastatin 20 mg tablet 20 mg PO HS 02/11/25 02/11/25 History cholecalciferol (vitamin D3) 25 25 mcg PO DAILY 02/11/25 02/11/25 History mcg (1,000 unit) tablet (Vitamin D3) clopidogrel 75 mg tablet 75 mg PO DAILY 02/11/25 02/11/25 History cyanocobalamin (vitamin B-12) 50 0 mcg PO DAILY 02/11/25 02/11/25 History mcg tablet (Vitamin B-12) vitamin B complex 1 cap PO DAILY 02/11/25 02/11/25 History Past Med/Surg History Problem List (Updated 02/11/25 @ 09:36 by Brett Bo MD) SOB (shortness of breath) Acute upper GI bleed (Acute) Branch retinal artery occlusion of right eye Weakness (Acute) Stroke-like symptoms (Acute) Social History Smoking Status: Former smoker Second Hand Exposure: No; Hx Alcohol Use: No Hx Substance Use: No Preferred Language: Belarusian Communication Ability: Effective Scientific Software Developer Required: No Beliefs That Will Affect Care: None Current Living Situation: Family Current Living Situation Comment: Lives at house alone- son lives nearby in [facility] Feels Safe at Home: Yes Assistive Devices: Cane, Denture - Upper, Denture - Lower and Oxygen - at Night Review of Systems Review of Systems: As per HPI, all other systems reviewed and negative Physical Exam Physical Exam: GENERAL: Comfortable, pleasant, morbidly obese, no respiratory distress SKIN: Pallor, warm HEENT: Pale palpebral conjunctivae, no ptosis, dry buccal mucosa NECK : Supple, no tenderness CHEST : Decreased breath sounds, no tenderness HEART : RRR, no obvious murmurs ABDOMEN: Some distention, minimal epigastric tenderness EXTREMITIES : Bilateral LE swelling without tenderness (chronic as per patient), palpable pulses, no other conspicuous deformities noted NEUROLOGIC : Coherent, no facial asymmetry, no other gross focality Results & Data Results & Data Vital Signs (Past 12 Hours) Vital Signs Temp Pulse Pulse Resp BP BP Pulse Ox 02/11/25 00:19 98 02/11/25 00:19 76 18 140/79 94 02/11/25 00:19 92 02/11/25 00:08 83 02/10/25 23:58 36.6 C 91 H 18 149/93 H 94 O2 Del Method 02/11/25 00:19 Room Air 02/11/25 00:19 Room Air 02/11/25 00:19 Room Air 02/11/25 00:08 02/10/25 23:58 Room Air Laboratory Results Laboratory Results WBC 9.64 K/ul (4.8-10.8) 02/11/25 00:24 RBC 2.36 M/uL (4.20-5.40) L 02/11/25 00:24 Hgb 6.8 g/dl (12.0-16.0) L* 02/11/25 00:24 POC Hgb 7.5 g/dl (12.0-16.0) L 02/11/25 00:32 Hct 21.6 % (37.0-47.0) L 02/11/25 00:24 POC Hct 22 % (37-47) L 02/11/25 00: MCV 91.5 fL (80.0-100.0) 02/11/25 00:24 MCH 28.8 pg (25.0-34.0) 02/11/25 00:24 MCHC 31.5 g/dL (32.0-36.0) L 02/11/25 00:24 RDW Std Deviation 48.9 fL (36.4-46.3) H 02/11/25 00: RDW Coeff of Shin 16.0 % (11.5-14.5) H 02/11/25 00:24 Plt Count 218 K/uL (130-400) 02/11/25:24 MPV 11.2 fL (9.4-12.4) 02/11/25 00:24 Immature Gran % (Auto) 0.7 % 02/11/25:24 Neut % (Auto) 72.5 % 02/11/25: Lymph % (Auto) 18.0 % 02/11/25:24 [place] % (Auto) 7.6 % 02/11/25 00:24 Eos % (Auto) 1.0 % 02/11/25 00:24 Baso % (Auto) 0.2 % 02/11/25:24 Neut # (Auto) 6.98 K/uL (1.40-6.50) H 02/11/25 00:24 Lymph # (Auto) 1.74 K/uL (1.20-3.40) 02/11/25 00:24 [place] # (Auto) 0.73 K/uL (0.11-0.59) H 02/11/25 00:24 Eos # (Auto) 0.10 K/uL (0.00-0.50) 02/11/25 00:24 Baso # (Auto) 0.02 K/uL (0.00-0.20) 02/11/25 00:24 Immature Gran # (Auto) 0.07 K/uL (0.01-0.20) 02/11/25 00:24 Toxic Vacuolation 1+ 02/11/25 00:24 Polychromasia 2+ 02/11/25 00:24 POC Sodium 140 mmol/L (135-144) 02/11/25 00:32 Sodium 139 mmol/L (136-145) 02/11/25 00:24 POC Potassium 3.7 mmol/L (3.3-5.0) 02/11/25 00:32 Potassium 3.7 mmol/L (3.5-5.1) 02/11/25 00:24 POC Chloride 104 mmol/L (101-112) 02/11/25 00: Chloride 104 mmol/L (98-107) 02/11/25 00:24 Carbon Dioxide 27 mmol/L (21-32) 02/11/25 00:24 POC Total CO2 26 mmol/L (24-31) 02/11/25 00:32 Anion Gap 8 (3-11) 02/11/25 00:24 POC Anion Gap 15.0 mmol/L (16-25) L 02/11/25 00:32 POC BUN 41 mg/dl (7-18) H 02/11/25 00:32 BUN 42 mg/dl (6-23) H 02/11/25 00:24 Creatinine 1.53 mg/dl (0.6-1.2) H 02/11/25 00:24 POC Creatinine 1.6 mg/dl (0.6-1.3) H 02/11/25 00:32 Est Cr Clr Drug Dosing 39.3 ml/min 02/11/25 00:24 eGFR 35.49 02/11/25 00:24 BUN/Creatinine Ratio 27.5 (10-20) H 02/11/25 00:24 Glucose 128 mg/dl (70-99(Fasting)) H 02/11/25 00:24 POC Glucose (other) 123 mg/dl (70-99) H 02/11/25 00:32 Calcium 9.6 mg/dl (8.6-10.3) 02/11/25 00:24 POC Ioniz Calcium [place] 1.20 mmol/l (1.12-1.32) 02/11/25 00: Magnesium 2.0 mg/dl (1.7-2.4) 02/11/25:24 Total Bilirubin 0.3 mg/dl (0.2-1.0) 02/11/25: AST 21 U/L (13-39) 02/11/25: ALT 13 U/L (7-52) 02/11/25:24 Alkaline Phosphatase 49 U/L (34-104) 02/11/25: Total Protein 6.8 gm/dl (6.0-8.3) 02/11/25: Albumin 3.6 gm/dl (3.4-5.0) 02/11/25: Globulin 3.2 gm/dl (2.5-4.0) 02/11/25 Albumin/Globulin Ratio 1.1 (0.9-2) 02/11/25: TSH 0.360 uIu/ml (0.300-4.500) 02/11/25 00:24 CT abdomen pelvis: 1. No evidence of alimentary tract mass lesions, bowel obstruction, or wall thickening. 2. A small calcified shadow is seen intimately abutting the upper aspect of the renal pelvis and is intimately related to the right renal artery, measuring 6.1 mm and [address] density, which raises the possibility of a small calcified renal artery 3. Aneurysm versus a small non-obstructing stone. For better evaluation, a post-contrast study is recommended. 4. Hepatomegaly. 5. A small hiatal hernia Diagnostic Findings Chest x-ray as per my interpretation atelectasis/congestion EKG as per my interpretation : Rate 85, NSR, LAD, LAFB, incomplete RBB, no ischemia
--- NOTE | 2025-02-11 01:57 | XRay Report ---
EXAM: XR chest 1V portable CLINICAL HISTORY: Weakness. TECHNIQUE: An X-ray image of the chest was obtained in the AP projection. COMPARISON: No prior studies are available for comparison. FINDINGS: Pulmonary Parenchyma: Bilateral lower zones show faint opacification, which suggests projectional or soft tissue shadow. Clinical correlation is recommended to rule out a less likely inflammatory process. Prominent right hilar bronchopulmonary vasculature suggests pulmonary congestion. A left middle zone device shadow is noted, and clinical correlation is suggested. No pulmonary nodules are identified. No evidence of pleural effusion or pleural thickening. Heart and Mediastinum: The heart size and shape are normal. No mediastinal widening or masses are seen. No hilar or mediastinal lymphadenopathy. Bony Thorax: The bony thorax appears intact, without fractures or deformities. Soft Tissues: The soft tissues overlying the chest wall are unremarkable. IMPRESSION: 1. Bilateral lower zones show faint opacification, which suggests projectional or soft tissue shadow. Clinical correlation is recommended to rule out a less likely inflammatory process. 2. Prominent right hilar bronchopulmonary vasculature suggests pulmonary congestion. Electronically signed by Salomón Wilcox 02-11-2025 01:56 AM
[2025-02-11] MEDS: PANTOprazole 40 MG in DEXTROSE 5% MINI-B 100 ML IV SCH (02:31)
[2025-02-11] MEDS: PANTOprazole 40 MG/10 ML SYR IV STA (02:36)
[2025-02-11] MEDS ORDERED: PROMETHAZINE 6.25 MG/50.25 ML BAG IV PRN (02:37)
[2025-02-11] MEDS ORDERED: ACETAMINOPHEN 325 MG TAB PO PRN (02:37)
[2025-02-11] MEDS: FUROSEMIDE 40 MG/4 ML VIAL IV STA (04:06)
[2025-02-11] MEDS: POTASSIUM CHLORIDE CRTAB 20 MEQ TABCR PO STA (04:07)
--- NOTE | 2025-02-11 04:22 | CT Scan Report ---
EXAM: CT abd pelvis wo con CLINICAL HISTORY: Abd pain, gi bleed. TECHNIQUE: CT of the abdomen and pelvis was performed without contrast, using the following protocol: Axial images were obtained, and reconstructed coronal and sagittal images were created. One of the following dose reduction techniques was utilized for this exam: automated exposure control; adjustment of the mA and/or kV according to patient size; and use of iterative reconstruction. COMPARISON: None. FINDINGS: Abdomen: Liver: The liver is diffusely enlarged in size, measuring 18.5 cm in diameter, with normal density. No focal lesions, cysts, or masses are identified. The hepatic vasculature and biliary ducts are unremarkable. Gallbladder and Biliary System: The gallbladder is normal in size and shape. No wall thickening, pericholecystic fluid, or gallstones are identified. The common bile duct is normal in caliber, without dilation. Pancreas: The pancreatic head, body, and tail are visualized and appear normal in size and density. No pancreatic masses or calcifications are noted. The pancreatic duct is not dilated. Spleen: The spleen is normal in size, shape, and density. No splenic lesions or masses are identified. Appendix: The appendix is normal in size, without kaleb-appendiceal fat stranding and without an appendicolith. There is no evidence of appendiceal abscess or perforation. Kidneys and Adrenal Glands: A small calcified shadow is seen intimately abutting the upper aspect of the renal pelvis and is intimately related to the right renal artery. It measures 6.1 mm and [address] density. Both kidneys are normal in size, shape, and position. Cortical thickness is within normal limits. The adrenal glands are unremarkable, with no evidence of masses or hyperplasia. Pelvis: Urinary Bladder: The urinary bladder is normal in contour and wall thickness. No intraluminal lesions are identified. Uterus: The uterus is not clearly identified and may be surgically removed, with an average-sized stump and no sizable lesions. It shows a few dense foci, likely calcification or clips. Ovaries: The ovaries are not well visualized, but no gross abnormalities are noted. Peritoneal and Retroperitoneal Structures: No free fluid or abnormal fluid collections are identified within the abdomen or pelvis. No lymphadenopathy is noted. Atherosclerotic calcification is present. Bowel: The visualized bowel loops are normal in caliber and appearance. There is no evidence of bowel obstruction or wall thickening. Bones and Soft Tissues: There are spondylodegenerative changes of the lumbar spine. The pelvic bones and soft tissues are unremarkable. No fractures or abnormal masses are identified. The lower chest cuts show a few atelectatic bands and a hiatal hernia. IMPRESSION: 1. No evidence of alimentary tract mass lesions, bowel obstruction, or wall thickening. 2. A small calcified shadow is seen intimately abutting the upper aspect of the renal pelvis and is intimately related to the right renal artery, measuring 6.1 mm and [address] density, which raises the possibility of a small calcified renal artery 3. Aneurysm versus a small non-obstructing stone. For better evaluation, a post-contrast study is recommended. 4. Hepatomegaly. 5. A small hiatal hernia Electronically signed by Salomón Wilcox 02-11-2025 04:22 AM
--- NOTE | 2025-02-11 05:42 | Emergency Department Note ---
Impression & Plan Acute upper GI bleed, Acute blood loss anemia, Syncope admit to the [facility] ED Provider Note NAME: CHADWICK BLOUNT AGE: 74 SEX: Female INFORMANT: Patient ED PROVIDER(S): Heaven Mckeon DO CHIEF COMPLAINT: epigastric abdominal pain; dark tarry stool PLAN: Disposition: admit to the [facility] MEDICAL DECISION MAKING: This is a 74-year-old female patient who was discharged from the hospital last week on aspirin and Plavix for strokelike symptoms. She followed up this week with ophthalmology and was diagnosed with a detached retina. This was thought to possibly be the cause of her visual symptoms instead of a stroke. However, the patient states she was told to remain on the prescribed Plavix and aspirin. This past , the patient began to develop increasing epigastric abdominal discomfort. She states that she has a history of a previous bleeding ulcer. She was concerned that this could be the cause again. She then noted dark tarry stools Wednesday and then had significant lightheadedness upon standing and had an episode of syncope. Patient was extremely pale on physical exam. I-STAT hemoglobin was 7.5. BUN 41 and creatinine 1.6. Glucose was 128. Lab value hemoglobin was 6.8. The patient was typed and crossed for 1 unit of packed red blood cells for immediate transfusion. I discussed the case with the [facility] Hospitalist and they will evaluate for further inpatient care. Care/management discussed with: property utilization manager and [facility] Triage Nursing notes: reviewed and agree with them. Vital Signs: reviewed and unremarkable Additional History obtained from: patient's son is at the bedside Chronic Medical/Social Conditions affecting care: recent inpatient stay and diagnosis of strokelike symptoms-patient started on aspirin and Plavix Prior/ Outside/ External records reviewed: recent inpatient records from last week's hospitalization Differential Diagnosis: pancreatitis, also known disease, upper GI bleed Diagnostics, independently interpreted by me: ECG: normal sinus rhythm at a rate of [address] segment elevation or signs of ischemia. There is no ectopy. QTc was 465 ms Cardiac Monitoring: normal sinus rhythm at 76 Imaging studies: portable chest x-ray: Mild pulmonary vascular congestion as per my independent interpretation HPI: 74 year old Female arrives for evaluation of Dark tarry stools and syncope. patient was placed on Plavix and aspirin after being admitted to the hospital with strokelike symptoms last week. Earlier this week, the patient began to develop epigastric discomfort. She has a history of previous bleeding ulcer. she was concerned this might be happening again. Two days ago, she noted dark tarry stools and developed lightheadedness and an episode of syncope. PAST MEDICAL HISTORY: See Below, SOCIAL HISTORY: Patient's son lives with her HOME MEDICATIONS: see list ALLERGIES: none VITALS: See Below PHYSICAL EXAMINATION: HEENT: Head - normocephalic and atraumatic Pupils are equal, round, and reactive to light. Extraocular eye muscles are intact, and sclera are anicteric. conjunctive are pale Nose - moist nasal mucosa without discharge. Mouth - moist buccal mucosa. Oropharynx is nonerythematous and there is no tonsillar exudate or edema noted. Neck: Supple; no JVD or nuchal rigidity Heart: Regular rate and rhythm. There is a normal S1 and S2 with no murmurs, clicks, or gallops appreciated. Lungs: Clear to auscultation bilaterally with no wheezes, rales, or rhonchi. Abdomen: Soft, mild tenderness to palpation in the epigastrium with normal bowel sounds. There are no palpable pulsatile masses or hepatosplenomegaly. There is no guarding, rigidity, or rebound noted. Extremities: No evidence of cyanosis, clubbing, or edema. There are easily palpable peripheral pulses. Skin: Extremely palewarm and dry with good turgor and no rashes. Emergency department treatment: ekg monitor, supplemental oxygen, IV normal saline bolus, transfuse 1 units of packed red blood cells, IV Pepcid Emergency Department course: The patient was evaluated in room A-3. A complete history and physical was performed. An order was placed for continuous cardiac monitoring. The patient was in a normal sinus rhythm at a rate of 76. Patient was bolused with IV normal saline as she was hypotensive upon presentation. Twelve-lead EKG was obtained as described above. Laboratory studies were drawn as above. The patient was typed and crossed for packed red blood cells. She had dark tarry stools noted within her brief. patient was given IV Pepcid and transfused with 1 unit of packed red blood cells. Patient remained hemodynamically stable. I discussed the case with the [facility] Hospitalist and they will evaluate for further inpatient care. I have personally spent greater than 60 minutes of critical care time in the direct management of this patient. This includes bedside care, interpretation of diagnostic studies, and testing, discussion with consultants, patient, and family members, and other required patient management activities. This 60 minutes is in excess of all separately billable procedures. Past Med/Surg History Problem List (Updated 02/12/25 @ 06:15 by Heaven Mckeon DO) Syncope (Acute) Acute blood loss anemia (Acute) SOB (shortness of breath) Acute upper GI bleed (Acute) Branch retinal artery occlusion of right eye Weakness (Acute) Stroke-like symptoms (Acute) Social History Smoking Status: Former smoker Second Hand Exposure: No; Hx Alcohol Use: No Hx Substance Use: No Preferred Language: Greenlandic Communication Ability: Effective Converting Supervisor Required: No Beliefs That Will Affect Care: None Current Living Situation: Family Current Living Situation Comment: Lives at house alone- son lives nearby in [facility] Feels Safe at Home: Yes Assistive Devices: Cane, Denture - Upper, Denture - Lower and Oxygen - at Night Allergies Allergies Allergy/AdvReac Type Severity Reaction Status Date / Time No Known Allergies Allergy Unverified 01/26/25 18:55 Home Meds Home Medications Medication Instructions Recorded Confirmed albuterol sulfate 90 mcg/actuation 90 mcg inhalation DAILY PRN SOB 01/26/25 02/11/25 aerosol inhaler duloxetine 60 mg capsule,delayed 60 mg PO HS 01/26/25 02/11/25 release hydroxychloroquine 200 mg tablet 200 mg PO BID 01/26/25 02/11/25 levothyroxine 150 mcg tablet 150 mcg PO QAM 01/26/25 02/11/25 lisinopril 20 mg tablet 20 mg PO QAM 01/26/25 02/11/25 metoprolol succinate 100 mg 100 mg PO QAM 01/26/25 02/11/25 tablet,extended release 24 hr pantoprazole 40 mg tablet,delayed 40 mg PO 3XWK 01/26/25 02/11/25 release sertraline 25 mg tablet 25 mg PO QAM 01/26/25 02/11/25 aspirin 81 mg tablet,delayed 81 mg PO DAILY 02/11/25 02/11/25 release atorvastatin 20 mg tablet 20 mg PO HS 02/11/25 02/11/25 cholecalciferol (vitamin D3) 25 25 mcg PO DAILY 02/11/25 02/11/25 mcg (1,000 unit) tablet (Vitamin D3) clopidogrel 75 mg tablet 75 mg PO DAILY 02/11/25 02/11/25 cyanocobalamin (vitamin B-12) 50 0 mcg PO DAILY 02/11/25 02/11/25 mcg tablet (Vitamin B-12) vitamin B complex 1 cap PO DAILY 02/11/25 02/11/25 Results & Data (ED) Vital Signs Vital Signs - 24 hr 02/10/25 23:58 02/11/25 00:08 02/11/25 00:09 Temperature 36.6 C Temperature Source Oral Pulse Rate 91 H 83 Pulse Rate [Apical] Pulse Rate from SpO2 Sensor Pulse Rhythm Regular Pulse Strength Normal Respiratory Rate 18 Respiratory Effort / Characteristics Non-Labored Spontaneous Respiratory Depth Normal Blood Pressure 149/93 H 140/79 Blood Pressure [Left Arm] Blood Pressure Mean 111 90 Blood Pressure Mean [Left Arm] Blood Pressure Position [Left Arm] Pulse Oximetry 94 Oxygen Delivery Method Room Air Sepsis Recent Fever Within 48 Hours No Sepsis New/Unexplained Change in Mental Status No Sepsis Action Taken by Nursing No Action Required 02/11/25 00:12 02/11/25 00:19 02/11/25 00:19 Temperature Temperature Source Pulse Rate 81 Pulse Rate [Apical] 76 Pulse Rate from SpO2 Sensor 80 Pulse Rhythm Pulse Strength Respiratory Rate 17 18 Respiratory Effort / Characteristics Respiratory Depth Blood Pressure Blood Pressure [Left Arm] 140/79 Blood Pressure Mean Blood Pressure Mean [Left Arm] 99 Blood Pressure Position [Left Arm] Lying Pulse Oximetry 96 92 94 Oxygen Delivery Method Room Air Room Air Room Air Sepsis Recent Fever Within 48 Hours Sepsis New/Unexplained Change in Mental Status Sepsis Action Taken by Nursing 02/11/25 00:19 02/11/25 00:36 02/11/25 00:40 Temperature Temperature Source Pulse Rate 74 Pulse Rate [Apical] Pulse Rate from SpO2 Sensor 76 Pulse Rhythm Pulse Strength Respiratory Rate 20 Respiratory Effort / Characteristics Respiratory Depth Blood Pressure 125/85 Blood Pressure [Left Arm] Blood Pressure Mean 96 Blood Pressure Mean [Left Arm] Blood Pressure Position [Left Arm] Pulse Oximetry 98 96 Oxygen Delivery Method Room Air Room Air Sepsis Recent Fever Within 48 Hours Sepsis New/Unexplained Change in Mental Status Sepsis Action Taken by Nursing 02/11/25 01:00 02/11/25 01:03 Temperature Temperature Source Pulse Rate 76 Pulse Rate [Apical] Pulse Rate from SpO2 Sensor 76 Pulse Rhythm Pulse Strength Respiratory Rate 15 Respiratory Effort / Characteristics Respiratory Depth Blood Pressure 135/78 Blood Pressure [Left Arm] Blood Pressure Mean 117 Blood Pressure Mean [Left Arm] Blood Pressure Position [Left Arm] Pulse Oximetry 94 Oxygen Delivery Method Room Air Sepsis Recent Fever Within 48 Hours Sepsis New/Unexplained Change in Mental Status Sepsis Action Taken by Nursing Laboratory Data 02/11/25 20:10 02/11/25 00:24 Lab Results 02/11/25 02/11/25 Range/Units 00:24 00:32 WBC 9.64 (4.8-10.8) K/ul RBC 2.36 L (4.20-5.40) M/uL Hgb 6.8 L* (12.0-16.0) g/dl POC Hgb 7.5 L (12.0-16.0) g/dl Hct 21.6 L (37.0-47.0) % POC Hct 22 L (37-47) % MCV 91.5 (80.0-100.0) fL MCH 28.8 (25.0-34.0) pg MCHC 31.5 L (32.0-36.0) g/dL RDW Std Deviation 48.9 H (36.4-46.3) fL RDW Coeff of Shin 16.0 H (11.5-14.5) % Plt Count 218 (130-400) K/uL MPV 11.2 (9.4-12.4) fL Immature Gran % (Auto) 0.7 % Neut % (Auto) 72.5 % Lymph % (Auto) 18.0 % [place] % (Auto) 7.6 % Eos % (Auto) 1.0 % Baso % (Auto) 0.2 % Neut # (Auto) 6.98 H (1.40-6.50) K/uL Lymph # (Auto) 1.74 (1.20-3.40) K/uL [place] # (Auto) 0.73 H (0.11-0.59) K/uL Eos # (Auto) 0.10 (0.00-0.50) K/uL Baso # (Auto) 0.02 (0.00-0.20) K/uL Immature Gran # (Auto) 0.07 (0.01-0.20) K/uL Toxic Vacuolation 1+ Polychromasia 2+ POC Sodium 140 (135-144) mmol/L Sodium 139 (136-145) mmol/L POC Potassium 3.7 (3.3-5.0) mmol/L Potassium 3.7 (3.5-5.1) mmol/L POC Chloride 104 (101-112) mmol/L Chloride 104 (98-107) mmol/L Carbon Dioxide 27 (21-32) mmol/L POC Total CO2 26 (24-31) mmol/L Anion Gap 8 (3-11) POC Anion Gap 15.0 L (16-25) mmol/L POC BUN 41 H (7-18) mg/dl BUN 42 H (6-23) mg/dl Creatinine 1.53 H (0.6-1.2) mg/dl POC Creatinine 1.6 H (0.6-1.3) mg/dl Est Cr Clr Drug Dosing 39.3 ml/min eGFR 35.49 BUN/Creatinine Ratio 27.5 H (10-20) Glucose 128 H (70-99(Fasting)) mg/dl POC Glucose (other) 123 H (70-99) mg/dl Calcium 9.6 (8.6-10.3) mg/dl POC Ioniz Calcium Arabella 1.20 (1.12-1.32) mmol/l Magnesium 2.0 (1.7-2.4) mg/dl Total Bilirubin 0.3 (0.2-1.0) mg/dl AST 21 (13-39) U/L ALT 13 (7-52) U/L Alkaline Phosphatase 49 (34-104) U/L Total Protein 6.8 (6.0-8.3) gm/dl Albumin 3.6 (3.4-5.0) gm/dl Globulin 3.2 (2.5-4.0) gm/dl Albumin/Globulin Ratio 1.1 (0.9-2) TSH 0.360 (0.300-4.500) uIu/ml Blood Type B Negative Antibody Screen POSITIVE A Antibody Identification Anti-Fya Crossmatch See Detail Administered Medications Atorvastatin Calcium (Atorvastatin 20 Mg Tab) 20 mg PO HS WENDY Stop: 03/13/25 20:59 Last Admin: 02/11/25 20:55 Dose: 20 mg Documented By: ALEKSANDR Cyanocobalamin (Cyanocobalamin (B-12) 500 Mcg Tablet) 1,000 mcg PO DAILY WENDY Stop: 03/13/25 08:59 Last Admin: 02/11/25 07:32 Dose: 1,000 mcg Documented By: fina Duloxetine HCl (Duloxetine Hcl 60 Mg Cap) 60 mg PO HS WENDY Stop: 03/13/25 20:59 Last Admin: 02/11/25 20:55 Dose: 60 mg Documented By: ALEKSANDR Hydroxychloroquine Sulfate (Hydroxychloroquine Sulfate 200 Mg Tab) 200 mg PO BID WENDY Stop: 03/13/25 08:59 Last Admin: 02/11/25 20:55 Dose: 200 mg Documented By: Admin: 02/11/25 07:33 Dose: 200 mg Documented By: fina Pantoprazole Sodium (Protonix) 40 mg in 10 mls @ 5 mls/min IV BID WENDY Stop: 03/13/25 08:59 Last Admin: 02/11/25 20:55 Dose: 5 mls/min Documented By: Admin: 02/11/25 09:49 Dose: 5 mls/min Documented By: fina Levothyroxine Sodium (Levothyroxine Sodium 150 Mcg Tablet) 150 mcg PO DAILYBB WENDY Stop: 03/13/25 06:29 Last Admin: 02/12/25 06:08 Dose: 150 mcg Documented By: Admin: 02/11/25 06:24 Dose: 150 mcg Documented By: PANDA Metoprolol Succinate (Metoprolol Succ 50mg Ext Rel Tab) 100 mg PO QAM WENDY Stop: 03/13/25 08:59 Last Admin: 02/11/25 07:33 Dose: 100 mg Documented By: fina Sertraline HCl (Sertraline Hcl 50 Mg Tablet) 25 mg PO QAM WENDY Stop: 03/13/25 08:59 Last Admin: 02/11/25 07:33 Dose: 25 mg Documented By: fina Vitamin B Complex (Vitamin B Complex Tab) 1 tab PO DAILY WENDY Stop: 03/13/25 08:59 Last Admin: 02/11/25 07:34 Dose: 1 tab Documented By: [facility] [place] Discontinued Medications Furosemide (Furosemide 40 Mg/4 Ml Vial) 40 mg IV ONE STA Stop: 02/11/25 03:14 Last Admin: 02/11/25 04:06 Dose: 40 mg Documented By: ISAI Sodium Chloride (Nss) 500 mls @ 999 mls/hr IV .Q31M ONE Stop: 02/11/25 01:18 Last Infusion: 02/11/25 01:34 Dose: Infused Documented By: Admin: 02/11/25 00:54 Dose: 999 mls/hr Documented By: Pantoprazole Sodium (Protonix) 40 mg in 10 mls @ 5 mls/min IV NOW ONE Stop: 02/11/25 00:49 Last Admin: 02/11/25 00:54 Dose: 5 mls/min Documented By: Pantoprazole Sodium (Protonix) 40 mg in 10 mls @ 5 mls/min IV NOW STA Stop: 02/11/25 02:03 Last Admin: 02/11/25 02:36 Dose: 5 mls/min Documented By: Pantoprazole Sodium 40 mg/ (Dextrose) 100 mls @ 20 mls/hr IV Q5H WENDY Stop: 03/13/25 05:14 Last Infusion: 02/11/25 08:17 Dose: Infused Documented By: fina Admin: 02/11/25 02:31 Dose: 8 mg/hr, 20 mls/hr Documented By: Potassium Chloride (Potassium Chloride Crtab 20 Meq Tabcr) 40 meq PO NOW STA Stop: 02/11/25 03:43 Last Admin: 02/11/25 04:07 Dose: 40 meq Documented By: ISAI Imaging Data Radiologist's Impression: Chest X-Ray 02/11/25 00:17 EXAM: XR chest 1V portable CLINICAL HISTORY: Weakness. TECHNIQUE: An X-ray image of the chest was obtained in the AP projection. COMPARISON: No prior studies are available for comparison. FINDINGS: Pulmonary Parenchyma: Bilateral lower zones show faint opacification, which suggests projectional or soft tissue shadow. Clinical correlation is recommended to rule out a less likely inflammatory process. Prominent right hilar bronchopulmonary vasculature suggests pulmonary congestion. A left middle zone device shadow is noted, and clinical correlation is suggested. No pulmonary nodules are identified. No evidence of pleural effusion or pleural thickening. Heart and Mediastinum: The heart size and shape are normal. No mediastinal widening or masses are seen. No hilar or mediastinal lymphadenopathy. Bony Thorax: The bony thorax appears intact, without fractures or deformities. Soft Tissues: The soft tissues overlying the chest wall are unremarkable. IMPRESSION: 1. Bilateral lower zones show faint opacification, which suggests projectional or soft tissue shadow. Clinical correlation is recommended to rule out a less likely inflammatory process. 2. Prominent right hilar bronchopulmonary vasculature suggests pulmonary congestion. Electronically signed by Salomón Wilcox 02-11-2025 01:56 AM Discharge Plan Visit Data Chief Complaint: Syncope Stated Complaint: SYNCOPE ED Provider: Heaven Mckeon Discharge Problem: Acute upper GI bleed, Acute blood loss anemia, Syncope Patient Disposition: Admitted As Inpatient Condition: Critical Discharge Instructions Interventions: ED Discharge Assessment Last Done: 02/11/25 04:36
[2025-02-11] MEDS: LEVOTHYROXINE SODIUM 150 MCG TABLET PO SCH (06:24)
[2025-02-11] MEDS: CYANOCOBALAMIN (B-12) 500 MCG TABLET PO SCH (07:32)
[2025-02-11] MEDS: SERTRALINE HCL 50 MG TABLET PO SCH (07:33)
[2025-02-11] MEDS: HYDROXYCHLOROQUINE SULFATE 200 MG TAB PO SCH (07:33)
[2025-02-11] MEDS: METOPROLOL SUCC 50MG EXT REL TAB PO SCH (07:33)
[2025-02-11] MEDS: VITAMIN B COMPLEX TAB PO SCH (07:34)
--- NOTE | 2025-02-11 09:06 | Hospitalist Progress Note ---
Date of Service February 11, 2025 Assessment & Plan (1) Acute upper GI bleed: Plan 74 year old female with history of HTN, CKD 3, HLD, SLE, recent R eye vision loss recently diagnosed with BRAO and sent on DAPT. Presents with GIB #Melena -Secondary to suspected Upper GI bleed -Hgb 6.8 with baseline 10.9 -Acute on chronic anemia -Acute blood loss anemia -CT AP reviewed -In setting of DAPT use Plan -2 PRBCs ordered -No indication for protonix drip. switch to 40 IV BID -Appreciate GI input -NPO until evaluated by GI -DAPT DC as below -Follow Hgb closely. Transfuse < 7 #R eye vision loss -Recent admission for vision loss. Thought to be BRAO by neurology and started on DAPT -Evaluated by ophtho as OP and diagnosed with retinal detachment -Her DAPT was continued after this -Given normal MRI brain, very low suspicion that she had a BRAO -With her acute GI bleeding, risks of AC certainly outweigh the benefits Plan -DC AC upon discharge #CKD3 -At baseline -Avoid nephrotoxic agents if possible #Hypothyroidism -Continue synthroid #HTN -Hold home BP regimen today with acute GI bleed #SLE -Plaquenil I spent a total of 51 minutes coordinating, documenting, and providing care for this patient excluding time spent in the performance of separately billed ser vices. This included personally reviewing all current laboratories and imaging studies, medical reconciliation, outpatient chart review and discussion with specialists Admission and Anticipated Discharge Date Admission Date: February 11, 2025 Subjective Seen in room. She is feeling better than yesterday. Patient denies F/C, CP, palpitations, SOB, dyspnea, abd pain, N/V/D Physical Exam Physical Exam: Vitals and labs reviewed General: Well appearing, NAD HEENT: EOMI, PERRLA Neck: Supple Cardiac: RRR no rubs gallops or murmurs Lungs: CTA no rhonchi wheezing or rales Abd: S NT ND BS positive : Deffered MSK: Full ROM. No obvious deformities Ext: No Edema cyanosis Skin: Warm, Dry Neuro: AOx3 at baseline Psych: Normal Mood Results & Data Results & Data Vital Signs (Past 12 Hours) Vital Signs Temp Pulse Pulse Pulse Resp BP BP 02/11/25 07:56 36.6 C 70 123/77 02/11/25 07:45 02/11/25 06:56 36.5 C 76 18 129/74 02/11/25 06:26 36.4 C 75 18 122/74 02/11/25 06:11 36.4 C 75 18 115/70 02/11/25 06:10 36.4 C 75 18 115/70 02/11/25 05:57 36.5 C 76 18 108/69 02/11/25 05:45 36.3 C L 76 18 119/71 02/11/25 05:20 02/11/25 05:11 36.4 C 77 20 111/72 02/11/25 04:36 76 18 124/64 02/11/25 04:00 78 19 127/66 02/11/25 03:30 80 16 117/58 L 02/11/25 03:03 78 18 146/74 H 02/11/25 02:31 73 18 140/61 02/11/25 01:03 76 15 02/11/25 01:00 135/78 02/11/25 00:40 125/85 02/11/25 00:36 74 20 02/11/25 00:19 02/11/25 00:19 76 18 140/79 02/11/25 00:19 02/11/25 00:12 81 17 02/11/25 00:09 140/79 02/11/25 00:08 83 02/10/25 23:58 36.6 C 91 H 18 149/93 H Pulse Ox O2 Del Method 02/11/25 07:56 96 02/11/25 07:45 Room Air 02/11/25 06:56 95 02/11/25 06:26 94 02/11/25 06:11 94 02/11/25 06:10 94 02/11/25 05:57 94 02/11/25 05:45 95 02/11/25 05:20 Room Air 02/11/25 05:11 92 Room Air 02/11/25 04:36 93 Room Air 02/11/25 04:00 97 02/11/25 03:30 02/11/25 03:03 96 Room Air 02/11/25 02:31 94 Room Air 02/11/25 01:03 94 Room Air 02/11/25 01:00 02/11/25 00:40 02/11/25 00:36 96 Room Air 02/11/25 00:19 98 Room Air 02/11/25 00:19 94 Room Air 02/11/25 00:19 92 Room Air 02/11/25 00:12 96 Room Air 02/11/25 00:09 02/11/25 00:08 02/10/25 23:58 94 Room Air Laboratory Results Abnormal lab results 02/11/25 02/11/25 Range/Units 00:24 00:32 RBC 2.36 L (4.20-5.40) M/uL Hgb 6.8 L* (12.0-16.0) g/dl POC Hgb 7.5 L (12.0-16.0) g/dl Hct 21.6 L (37.0-47.0) % POC Hct 22 L (37-47) % MCHC 31.5 L (32.0-36.0) g/dL RDW Std Deviation 48.9 H (36.4-46.3) fL RDW Coeff of Shin 16.0 H (11.5-14.5) % Neut # (Auto) 6.98 H (1.40-6.50) K/uL Labette # (Auto) 0.73 H (0.11-0.59) K/uL POC Anion Gap 15.0 L (16-25) mmol/L POC BUN 41 H (7-18) mg/dl BUN 42 H (6-23) mg/dl Creatinine 1.53 H (0.6-1.2) mg/dl POC Creatinine 1.6 H (0.6-1.3) mg/dl BUN/Creatinine Ratio 27.5 H (10-20) Glucose 128 H (70-99(Fasting)) mg/dl POC Glucose (other) 123 H (70-99) mg/dl Antibody Screen POSITIVE A Crossmatch See Detail Diagnostic Findings Chest X-Ray 02/11/25 00:17 EXAM: XR chest 1V portable CLINICAL HISTORY: Weakness. TECHNIQUE: An X-ray image of the chest was obtained in the AP projection. COMPARISON: No prior studies are available for comparison. FINDINGS: Pulmonary Parenchyma: Bilateral lower zones show faint opacification, which suggests projectional or soft tissue shadow. Clinical correlation is recommended to rule out a less likely inflammatory process. Prominent right hilar bronchopulmonary vasculature suggests pulmonary congestion. A left middle zone device shadow is noted, and clinical correlation is suggested. No pulmonary nodules are identified. No evidence of pleural effusion or pleural thickening. Heart and Mediastinum: The heart size and shape are normal. No mediastinal widening or masses are seen. No hilar or mediastinal lymphadenopathy. Bony Thorax: The bony thorax appears intact, without fractures or deformities. Soft Tissues: The soft tissues overlying the chest wall are unremarkable. IMPRESSION: 1. Bilateral lower zones show faint opacification, which suggests projectional or soft tissue shadow. Clinical correlation is recommended to rule out a less likely inflammatory process. 2. Prominent right hilar bronchopulmonary vasculature suggests pulmonary congestion. Electronically signed by Salomón Wilcox 02-11-2025 01:56 AM Abdomen/Pelvis CT 02/11/25 02:36 EXAM: CT abd pelvis wo con CLINICAL HISTORY: Abd pain, gi bleed. TECHNIQUE: CT of the abdomen and pelvis was performed without contrast, using the following protocol: Axial images were obtained, and reconstructed coronal and sagittal images were created. One of the following dose reduction techniques was utilized for this exam: automated exposure control; adjustment of the mA and/or kV according to patient size; and use of iterative reconstruction. COMPARISON: None. FINDINGS: Abdomen: Liver: The liver is diffusely enlarged in size, measuring 18.5 cm in diameter, with normal density. No focal lesions, cysts, or masses are identified. The hepatic vasculature and biliary ducts are unremarkable. Gallbladder and Biliary System: The gallbladder is normal in size and shape. No wall thickening, pericholecystic fluid, or gallstones are identified. The common bile duct is normal in caliber, without dilation. Pancreas: The pancreatic head, body, and tail are visualized and appear normal in size and density. No pancreatic masses or calcifications are noted. The pancreatic duct is not dilated. Spleen: The spleen is normal in size, shape, and density. No splenic lesions or masses are identified. Appendix: The appendix is normal in size, without kaleb-appendiceal fat stranding and without an appendicolith. There is no evidence of appendiceal abscess or perforation. Kidneys and Adrenal Glands: A small calcified shadow is seen intimately abutting the upper aspect of the renal pelvis and is intimately related to the right renal artery. It measures 6.1 mm and [address] density. Both kidneys are normal in size, shape, and position. Cortical thickness is within normal limits. The adrenal glands are unremarkable, with no evidence of masses or hyperplasia. Pelvis: Urinary Bladder: The urinary bladder is normal in contour and wall thickness. No intraluminal lesions are identified. Uterus: The uterus is not clearly identified and may be surgically removed, with an average-sized stump and no sizable lesions. It shows a few dense foci, likely calcification or clips. Ovaries: The ovaries are not well visualized, but no gross abnormalities are noted. Peritoneal and Retroperitoneal Structures: No free fluid or abnormal fluid collections are identified within the abdomen or pelvis. No lymphadenopathy is noted. Atherosclerotic calcification is present. Bowel: The visualized bowel loops are normal in caliber and appearance. There is no evidence of bowel obstruction or wall thickening. Bones and Soft Tissues: There are spondylodegenerative changes of the lumbar spine. The pelvic bones and soft tissues are unremarkable. No fractures or abnormal masses are identified. The lower chest cuts show a few atelectatic bands and a hiatal hernia. IMPRESSION: 1. No evidence of alimentary tract mass lesions, bowel obstruction, or wall thickening. 2. A small calcified shadow is seen intimately abutting the upper aspect of the renal pelvis and is intimately related to the right renal artery, measuring 6.1 mm and [address] density, which raises the possibility of a small calcified renal artery 3. Aneurysm versus a small non-obstructing stone. For better evaluation, a post-contrast study is recommended. 4. Hepatomegaly. 5. A small hiatal hernia Electronically signed by Salomón Wilcox 02-11-2025 04:22 AM
[2025-02-11] MEDS: PANTOprazole 40 MG/10 ML SYR IV SCH (09:49)
[2025-02-11 10:50] LABS: Appearance Urine Clear (Clear); Glucose Urine UA Negative (Negative)
--- NOTE | 2025-02-11 13:22 | Gastrointestinal Consultation ---
Date of Consultation February 11, 2025 Assessment & Plan (1) SOB (shortness of breath): Assessment and plan below following discussion of case with ED provider and reviewing patient history/pertinent normal/abnormal diagnostic test results. Shortness of breath Multifactorial Pulmonary congestion UGIB History of Rowland's esophagus Recent DAPT Rx for possible central retinal artery occlusion. Acute on chronic anemia secondary to UGIB Syncope likely secondary to orthostasis from blood loss Transfuse PRBC to maintain hemoglobin of at least 8 Stop DAPT IV PPI for UGIB N.p.o. in anticipation of endoscopy DVT prophylaxis. SCDs re: GI bleed Full code Text document was generated using Tink recognition software. It may contain grammatical or spelling errors. Kindly contact undersigned for clarification of any documentation item in question. (2) Acute upper GI bleed: Will keep n.p.o. after midnight and perform EGD tomorrow morning I will enter orders, continue IV PPI in the meantime, monitor H&H and keep hemoglobin above 8 History of Present Illness Reason for Consultation: Melena upper GI bleeding Attending Physician: Isaac Carver, History of Present Illness 74-year-old female with noted comorbidities and past medical history, comes in for melena since Wednesday. She had about 2-3 bowel movements every day with dark tarry stools, recently was started on dual antiplatelet therapy for a possible TIA versus stroke in her right eye, Plavix has not been a chronic medication for her, she denies NSAIDs and only takes acetaminophen as needed, was told previously that she had ulcers and a remote endoscopy. Takes PPI daily at home. Last melanotic bowel movement was yesterday morning. She has been hemodynamically stable while in the hospital Allergies Allergy/AdvReac Type Severity Reaction Status Date / Time No Known Allergies Allergy Unverified 01/26/25 18:55 Home Medications Medication Instructions Recorded Confirmed Type albuterol sulfate 90 mcg/actuation 90 mcg inhalation DAILY PRN SOB 01/26/25 02/11/25 History aerosol inhaler duloxetine 60 mg capsule,delayed 60 mg PO HS 01/26/25 02/11/25 History release hydroxychloroquine 200 mg tablet 200 mg PO BID 01/26/25 02/11/25 History levothyroxine 150 mcg tablet 150 mcg PO QAM 01/26/25 02/11/25 History lisinopril 20 mg tablet 20 mg PO QAM 01/26/25 02/11/25 History metoprolol succinate 100 mg 100 mg PO QAM 01/26/25 02/11/25 History tablet,extended release 24 hr pantoprazole 40 mg tablet,delayed 40 mg PO 3XWK 01/26/25 02/11/25 History release sertraline 25 mg tablet 25 mg PO QAM 01/26/25 02/11/25 History aspirin 81 mg tablet,delayed 81 mg PO DAILY 02/11/25 02/11/25 History release atorvastatin 20 mg tablet 20 mg PO HS 02/11/25 02/11/25 History cholecalciferol (vitamin D3) 25 25 mcg PO DAILY 02/11/25 02/11/25 History mcg (1,000 unit) tablet (Vitamin D3) clopidogrel 75 mg tablet 75 mg PO DAILY 02/11/25 02/11/25 History cyanocobalamin (vitamin B-12) 50 0 mcg PO DAILY 02/11/25 02/11/25 History mcg tablet (Vitamin B-12) vitamin B complex 1 cap PO DAILY 02/11/25 02/11/25 History Patient History Social History Smoking Status: Former smoker Second Hand Exposure: No; Hx Alcohol Use: No Hx Substance Use: No Preferred Language: Macedonian Communication Ability: Effective Input Output Clerk Required: No Beliefs That Will Affect Care: None Current Living Situation: Family Current Living Situation Comment: Lives at house alone- son lives nearby in [place] [facility] Feels Safe at Home: Yes Assistive Devices: Cane, Denture - Upper, Denture - Lower and Oxygen - at Night Review of Systems Review of Systems: As peConstitutional: No Weight Change, No Fever, No Chills, No Night Sweats, No Fatigue, No Malaise ENT/Mouth: No Hearing Changes, No Ear Pain, No Nasal Congestion, No Sinus Pain, No Hoarseness, No sore throat, No Rhinorrhea, No Swallowing Difficulty Eyes: No Eye Pain, No Swelling, No Redness, No Foreign Body, No Discharge, No Vision Changes Cardiovascular: No Chest Pain, No SOB, No PND, No Dyspnea on Exertion, No Orthopnea, No Claudication, No Edema, No Palpitations Respiratory: No Cough, No Sputum, No Wheezing, No Smoke Exposure, No Dyspnea Gastrointestinal: No Nausea, No Vomiting, No Diarrhea, No Constipation, No Pain, No Heartburn, No Anorexia, No Dysphagia, No Hematochezia, No Melena, No Flatulence, No Jaundice Genitourinary: No Dysmenorrhea, No DUB, No Dyspareunia, No Dysuria, No Urinary Frequency, No Hematuria, No Urinary Incontinence, No Urgency, No Flank Pain, No Urinary Flow Changes, No Hesitancy Musculoskeletal: No Arthralgias, No Myalgias, No Joint Swelling, No Joint Stiffness, No Back Pain, No Neck Pain, No Injury History Skin: No Skin Lesions, No Pruritis, No Hair Changes, No Breast/Skin Changes, No Nipple Discharge Neuro: No Weakness, No Numbness, No Paresthesias, No Loss of Consciousness, No Syncope, No Dizziness, No Headache, No Coordination Changes, No Recent Falls Psych: No Anxiety/Panic, No Depression, No Insomnia, No Personality Changes, No Delusions, No Rumination, No SI/HI/AH/VH, No Social Issues, No Memory Changes, No Violence/Abuse Hx., No Eating Concerns Heme/Lymph: No Bruising, No Bleeding, No Transfusions History, No Lymphadeno malini Endocrine: No Polyuria, No Polydipsia, No Temperature Intolerancer HPI, all other systems reviewed and negative Physical Exam Physical Exam: GENERAL: Comfortable, pleasant, morbidly obese, no respiratory distress SKIN: Pallor, warm HEENT: Pale palpebral conjunctivae, no ptosis, dry buccal mucosa NECK : Supple, no tenderness CHEST : Decreased breath sounds, no tenderness HEART : RRR, no obvious murmurs ABDOMEN: Some distention, minimal epigastric tenderness EXTREMITIES : Bilateral LE swelling without tenderness (chronic as per patient), palpable pulses, no other conspicuous deformities noted NEUROLOGIC : Coherent, no facial asymmetry, no other gross focality Results & Data Vital Signs (Past 12 Hours) Vital Signs Temp Pulse Pulse Pulse Resp BP BP 02/11/25 12:43 36.8 C 60 16 114/74 02/11/25 12:13 36.6 C 64 16 106/60 02/11/25 12:06 36.7 C 63 16 111/65 02/11/25 11:58 36.7 C 63 16 111/65 02/11/25 11:44 36.6 C 80 16 118/66 02/11/25 11:39 36.6 C 64 16 126/76 02/11/25 09:58 36.6 C 64 16 109/71 02/11/25 08:56 36.6 C 67 20 106/53 L 02/11/25 07:56 36.6 C 70 123/77 02/11/25 07:45 02/11/25 06:56 36.5 C 76 18 129/74 02/11/25 06:26 36.4 C 75 18 122/74 02/11/25 06:11 36.4 C 75 18 115/70 02/11/25 06:10 36.4 C 75 18 115/70 02/11/25 05:57 36.5 C 76 18 108/69 02/11/25 05:45 36.3 C L 76 18 119/71 02/11/25 05:20 02/11/25 05:11 36.4 C 77 20 111/72 02/11/25 04:36 76 18 124/64 02/11/25 04:00 78 19 127/66 02/11/25 03:30 80 16 117/58 L 02/11/25 03:03 78 18 146/74 H 02/11/25 02:31 73 18 140/61 Pulse Ox O2 Del Method 02/11/25 12:43 96 02/11/25 12:13 96 02/11/25 12:06 95 02/11/25 11:58 95 02/11/25 11:44 99 Room Air 02/11/25 11:39 96 02/11/25 09:58 94 02/11/25 08:56 93 02/11/25 07:56 96 02/11/25 07:45 Room Air 02/11/25 06:56 95 02/11/25 06:26 94 02/11/25 06:11 94 02/11/25 06:10 94 02/11/25 05:57 94 02/11/25 05:45 95 02/11/25 05:20 Room Air 02/11/25 05:11 92 Room Air 02/11/25 04:36 93 Room Air 02/11/25 04:00 97 02/11/25 03:30 02/11/25 03:03 96 Room Air 02/11/25 02:31 94 Room Air Laboratory Results Abnormal Lab Results 02/11/25 02/11/25 02/11/25 00:24 00:32 10:14 WBC 9.64 RBC 2.36 L Hgb 6.8 L* POC Hgb 7.5 L Hct 21.6 L POC Hct 22 L MCV 91.5 MCH 28.8 MCHC 31.5 L RDW Std Deviation 48.9 H RDW Coeff of Shin 16.0 H Plt Count 218 MPV 11.2 Immature Gran % (Auto) 0.7 Neut % (Auto) 72.5 Lymph % (Auto) 18.0 [place] % (Auto) 7.6 Eos % (Auto) 1.0 Baso % (Auto) 0.2 Neut # (Auto) 6.98 H Lymph # (Auto) 1.74 [place] # (Auto) 0.73 H Eos # (Auto) 0.10 Baso # (Auto) 0.02 Immature Gran # (Auto) 0.07 Toxic Vacuolation 1+ Polychromasia 2+ POC Sodium 140 Sodium 139 POC Potassium 3.7 Potassium 3.7 POC Chloride 104 Chloride 104 Carbon Dioxide 27 POC Total CO2 26 Anion Gap 8 POC Anion Gap 15.0 L POC BUN 41 H BUN 42 H Creatinine 1.53 H POC Creatinine 1.6 H Est Cr Clr Drug Dosing 39.3 eGFR 35.49 BUN/Creatinine Ratio 27.5 H Glucose 128 H POC Glucose (other) 123 H Calcium 9.6 POC Ioniz Calcium [place] 1.20 Magnesium 2.0 Total Bilirubin 0.3 AST 21 ALT 13 Alkaline Phosphatase 49 Total Protein 6.8 Albumin 3.6 Globulin 3.2 Albumin/Globulin Ratio 1.1 TSH 0.360 Urine Color Yellow Urine Appearance Clear Urine pH 5.0 Ur Specific [place] 1.011 Urine Protein Negative Urine Glucose (UA) Negative Urine Ketones Negative Urine Blood Negative Urine Nitrite Negative Urine Bilirubin Negative Urine Urobilinogen Negative Ur Leukocyte Esterase Negative Urine Comment Blood Type B Negative Antibody Screen POSITIVE A Antibody Identification Anti-Fya Crossmatch See Detail Diagnostic Findings Chest X-Ray 02/11/25 00:17 EXAM: XR chest 1V portable CLINICAL HISTORY: Weakness. TECHNIQUE: An X-ray image of the chest was obtained in the AP projection. COMPARISON: No prior studies are available for comparison. FINDINGS: Pulmonary Parenchyma: Bilateral lower zones show faint opacification, which suggests projectional or soft tissue shadow. Clinical correlation is recommended to rule out a less likely inflammatory process. Prominent right hilar bronchopulmonary vasculature suggests pulmonary congestion. A left middle zone device shadow is noted, and clinical correlation is suggested. No pulmonary nodules are identified. No evidence of pleural effusion or pleural thickening. Heart and Mediastinum: The heart size and shape are normal. No mediastinal widening or masses are seen. No hilar or mediastinal lymphadenopathy. Bony Thorax: The bony thorax appears intact, without fractures or deformities. Soft Tissues: The soft tissues overlying the chest wall are unremarkable. IMPRESSION: 1. Bilateral lower zones show faint opacification, which suggests projectional or soft tissue shadow. Clinical correlation is recommended to rule out a less likely inflammatory process. 2. Prominent right hilar bronchopulmonary vasculature suggests pulmonary congestion. Electronically signed by Salomón Wilcox 02-11-2025 01:56 AM Abdomen/Pelvis CT 02/11/25 02:36 EXAM: CT abd pelvis wo con CLINICAL HISTORY: Abd pain, gi bleed. TECHNIQUE: CT of the abdomen and pelvis was performed without contrast, using the following protocol: Axial images were obtained, and reconstructed coronal and sagittal images were created. One of the following dose reduction techniques was utilized for this exam: automated exposure control; adjustment of the mA and/or kV according to patient size; and use of iterative reconstruction. COMPARISON: None. FINDINGS: Abdomen: Liver: The liver is diffusely enlarged in size, measuring 18.5 cm in diameter, with normal density. No focal lesions, cysts, or masses are identified. The hepatic vasculature and biliary ducts are unremarkable. Gallbladder and Biliary System: The gallbladder is normal in size and shape. No wall thickening, pericholecystic fluid, or gallstones are identified. The common bile duct is normal in caliber, without dilation. Pancreas: The pancreatic head, body, and tail are visualized and appear normal in size and density. No pancreatic masses or calcifications are noted. The pancreatic duct is not dilated. Spleen: The spleen is normal in size, shape, and density. No splenic lesions or masses are identified. Appendix: The appendix is normal in size, without kaleb-appendiceal fat stranding and without an appendicolith. There is no evidence of appendiceal abscess or perforation. Kidneys and Adrenal Glands: A small calcified shadow is seen intimately abutting the upper aspect of the renal pelvis and is intimately related to the right renal artery. It measures 6.1 mm and [address] density. Both kidneys are normal in size, shape, and position. Cortical thickness is within normal limits. The adrenal glands are unremarkable, with no evidence of masses or hyperplasia. Pelvis: Urinary Bladder: The urinary bladder is normal in contour and wall thickness. No intraluminal lesions are identified. Uterus: The uterus is not clearly identified and may be surgically removed, with an average-sized stump and no sizable lesions. It shows a few dense foci, likely calcification or clips. Ovaries: The ovaries are not well visualized, but no gross abnormalities are noted. Peritoneal and Retroperitoneal Structures: No free fluid or abnormal fluid collections are identified within the abdomen or pelvis. No lymphadenopathy is noted. Atherosclerotic calcification is present. Bowel: The visualized bowel loops are normal in caliber and appearance. There is no evidence of bowel obstruction or wall thickening. Bones and Soft Tissues: There are spondylodegenerative changes of the lumbar spine. The pelvic bones and soft tissues are unremarkable. No fractures or abnormal masses are identified. The lower chest cuts show a few atelectatic bands and a hiatal hernia. IMPRESSION: 1. No evidence of alimentary tract mass lesions, bowel obstruction, or wall thickening. 2. A small calcified shadow is seen intimately abutting the upper aspect of the renal pelvis and is intimately related to the right renal artery, measuring 6.1 mm and [address] density, which raises the possibility of a small calcified renal artery 3. Aneurysm versus a small non-obstructing stone. For better evaluation, a post-contrast study is recommended. 4. Hepatomegaly. 5. A small hiatal hernia Electronically signed by Salomón Wilcox 02-11-2025 04:22 AM Medications Administered Home Medications Medication Instructions Recorded Confirmed Last Taken albuterol sulfate 90 mcg/actuation 90 mcg inhalation DAILY PRN SOB 01/26/25 02/11/25 02/10/25 aerosol inhaler duloxetine 60 mg capsule,delayed 60 mg PO HS 01/26/25 02/11/25 02/10/25 release hydroxychloroquine 200 mg tablet 200 mg PO BID 01/26/25 02/11/25 02/10/25 levothyroxine 150 mcg tablet 150 mcg PO QAM 01/26/25 02/11/25 02/10/25 lisinopril 20 mg tablet 20 mg PO QAM 01/26/25 02/11/25 02/10/25 metoprolol succinate 100 mg 100 mg PO QAM 01/26/25 02/11/25 02/10/25 tablet,extended release 24 hr pantoprazole 40 mg tablet,delayed 40 mg PO 3XWK 01/26/25 02/11/25 02/10/25 release sertraline 25 mg tablet 25 mg PO QAM 01/26/25 02/11/25 02/10/25 aspirin 81 mg tablet,delayed 81 mg PO DAILY 02/11/25 02/11/25 Unknown release atorvastatin 20 mg tablet 20 mg PO HS 02/11/25 02/11/25 02/10/25 cholecalciferol (vitamin D3) 25 25 mcg PO DAILY 02/11/25 02/11/25 02/10/25 mcg (1,000 unit) tablet (Vitamin D3) clopidogrel 75 mg tablet 75 mg PO DAILY 02/11/25 02/11/25 Unknown cyanocobalamin (vitamin B-12) 50 0 mcg PO DAILY 02/11/25 02/11/25 02/10/25 mcg tablet (Vitamin B-12) vitamin B complex 1 cap PO DAILY 02/11/25 02/11/25 02/10/25 Active Medications Generic Name Dose Route Start Last Admin Trade Name Rossi PRN Reason Stop Dose Admin Cyanocobalamin 1,000 mcg 02/11/25 09:00 02/11/25 07:32 Cyanocobalamin (B-12) 500 Mcg Tablet PO 03/13/25 08:59 1,000 mcg DAILY WENDY Administration Hydroxychloroquine Sulfate 200 mg 02/11/25 09:00 02/11/25 07:33 Hydroxychloroquine Sulfate 200 Mg Tab PO 03/13/25 08:59 200 mg BID WENDY Administration Pantoprazole Sodium 40 mg in 10 mls @ 5 mls/min 02/11/25 09:00 02/11/25 09:49 Protonix IV 03/13/25 08:59 5 mls/min BID WENDY Administration Levothyroxine Sodium 150 mcg 02/11/25 06:30 02/11/25 06:24 Levothyroxine Sodium 150 Mcg Tablet PO 03/13/25 06:29 150 mcg DAILYBB WENDY Administration Metoprolol Succinate 100 mg 02/11/25 09:00 02/11/25 07:33 Metoprolol Succ 50mg Ext Rel Tab PO 03/13/25 08:59 100 mg QAM WENDY Administration Sertraline HCl 25 mg 02/11/25 09:00 02/11/25 07:33 Sertraline Hcl 50 Mg Tablet PO 03/13/25 08:59 25 mg QAM WENDY Administration Vitamin B Complex 1 tab 02/11/25 09:00 02/11/25 07:34 Vitamin B Complex Tab PO 03/13/25 08:59 1 tab DAILY WENDY Administration
[2025-02-11 16:30] LABS: Hematocrit (blood only) 26.5 % (37.0-47.0); Hemoglobin 8.3 g/dl (12.0-16.0)
--- NOTE | 2025-02-11 19:46 | Electrocardiogram Report ---
Test Reason : Blood Pressure : */* mmHG Vent. Rate : 83 BPM Atrial Rate : 83 BPM P-R Int : 178 ms QRS Dur : 96 ms QT Int : 396 ms P-R-T Axes : 69 9 56 degrees QTcB Int : 465 ms Normal sinus rhythm Incomplete right bundle branch block Borderline ECG When compared with ECG of 26-Jan-2025 17:12, Incomplete right bundle branch block is now Present Confirmed by Micky Godinez ([id number]) on 02/11/2025 7:46:28 PM Referred By: REFERRED SELF Confirmed By: Micky Godinez
[2025-02-11 20:25] LABS: Hematocrit (blood only) 26.5 % (37.0-47.0); Hemoglobin 8.4 g/dl (12.0-16.0)
[2025-02-11] MEDS: ATORVASTATIN 20 MG TAB PO SCH (20:55)
[2025-02-12 07:16] LABS: Hematocrit (blood only) 24.7 % (37.0-47.0); Hemoglobin 8.0 g/dl (12.0-16.0); Immature Granulocytes # (auto) 0.03 K/uL (0.01-0.20); Immature Granulocytes % (auto) 0.5 %; Mean Corpuscular Hemoglobin 29.1 pg (25.0-34.0); Mean Corpuscular Volume 89.8 fL (80.0-100.0); Platelet Count 180 K/uL (130-400); RDW Standard Deviation 47.8 fL (36.4-46.3); Red Blood Count 2.75 M/uL (4.20-5.40); White Blood Count 6.27 K/ul (4.8-10.8)
[2025-02-12 07:43] LABS: Anion Gap 6.0 (3-11); Blood Urea Nitrogen 31.0 mg/dl (6-23); Calcium 9.0 mg/dl (8.6-10.3); Carbon Dioxide 29.0 mmol/L (21-32); Chloride 107.0 mmol/L (98-107); Creatinine Clr Calc Pharmacy 43.6 ml/min; Glucose 100.0 mg/dl (70-99(Fasting)); Potassium 3.9 mmol/L (3.5-5.1); Sodium 142.0 mmol/L (136-145)
--- NOTE | 2025-02-12 09:02 | History & Physical Bridge Note ---
Date of Service February 12, 2025 History & Physical Bridge Note I have examined the patient, reviewed the History & Physical and in the interval since the performance of the History & Physical I have noted the following changes of clinical significance: no changes noted. Patient was NPO as directed. No clinical concerns. Plan to proceed with EGD as scheduled. Supervising Physician Co-Signing Physician Notes Patient is safe to proceed with egd. hgb 8.0 and difficulty getting blood. Plan for EGD today and clip only if we find an ulcer
--- NOTE | 2025-02-12 09:23 | Hospitalist Progress Note ---
Date of Service February 12, 2025 Assessment & Plan (1) SOB (shortness of breath): Plan: 4 year old female with history of HTN, CKD 3, HLD, SLE, recent R eye vision loss recently diagnosed with BRAO and sent on DAPT. Presents with GIB #Melena -Secondary to suspected Upper GI bleed -Hgb 6.8 with baseline 10.9 -Acute on chronic anemia -Acute blood loss anemia -CT AP reviewed -In setting of DAPT use -Hgb improved to 8.0 today following 2 PRBCs Plan -Protonix 40 IV BID -Appreciate GI input -For EGD today -DAPT DC as below -Follow Hgb and BP closely. Transfuse < 7 -Anticipate DC home tomorrow if Hgb remains stable #R eye vision loss -Recent admission for vision loss. Thought to be BRAO by neurology and started on DAPT -Evaluated by ophtho as OP and diagnosed with retinal detachment -Her DAPT was continued after this -Given normal MRI brain, very low suspicion that she had a BRAO -With her acute GI bleeding, risks of AC certainly outweigh the benefits Plan -DC AC upon discharge #CKD3 -At baseline -Avoid nephrotoxic agents if possible #Hypothyroidism -Continue synthroid #HTN -Hold home BP regimen today with acute GI bleed #SLE -Plaquenil I spent a total of 51 minutes coordinating, documenting, and providing care for this patient excluding time spent in the performance of separately billed services. This included personally reviewing all current laboratories and imaging studies, medical reconciliation, outpatient chart review and discussion with specialists Admission and Anticipated Discharge Date Admission Date: February 11, 2025 Subjective Continues to feel much better. less fatigue, SOB. more strength today. Patient denies F/C, CP, palpitations, SOB, dyspnea, abd pain, N/V/D Physical Exam Physical Exam: Vitals and labs reviewed General: Well appearing, NAD HEENT: EOMI, PERRLA Neck: Supple Cardiac: RRR no rubs gallops or murmurs Lungs: CTA no rhonchi wheezing or rales Abd: S NT ND BS positive : Deffered MSK: Full ROM. No obvious deformities Ext: No Edema cyanosis Skin: Warm, Dry Neuro: AOx3 at baseline Psych: Normal Mood Results & Data Results & Data Vital Signs (Past 12 Hours) Vital Signs Temp Pulse Pulse Resp BP Pulse Ox O2 Del Method 02/12/25 07:41 36.6 C 68 16 135/76 95 Room Air 02/12/25 03:34 36.6 C 69 18 111/67 92 Room Air 02/12/25 00:00 36.5 C 67 18 129/69 93 Room Air 02/11/25 21:52 71 Laboratory Results Abnormal lab results 02/11/25 02/11/25 02/11/25 Range/Units 00:24 15:56 20:10 RBC (4.20-5.40) M/uL Hgb 8.3 L 8.4 L (12.0-16.0) g/dl Hct 26.5 L 26.5 L (37.0-47.0) % RDW Std Deviation (36.4-46.3) fL RDW Coeff of Shin (11.5-14.5) % BUN (6-23) mg/dl Creatinine (0.6-1.2) mg/dl BUN/Creatinine Ratio (10-20) Glucose (70-99(Fasting)) mg/dl Antibody Screen POSITIVE A Crossmatch See Detail 02/12/25 Range/Units 06:38 RBC 2.75 L (4.20-5.40) M/uL Hgb 8.0 L (12.0-16.0) g/dl Hct 24.7 L (37.0-47.0) % RDW Std Deviation 47.8 H (36.4-46.3) fL RDW Coeff of Shin 15.4 H (11.5-14.5) % BUN 31 H (6-23) mg/dl Creatinine 1.39 H (0.6-1.2) mg/dl BUN/Creatinine Ratio 22.3 H (10-20) Glucose 100 H (70-99(Fasting)) mg/dl Antibody Screen Crossmatch
--- NOTE | 2025-02-12 12:06 | Anesthesiology Consultation ---
Date of Service February 12, 2025 Assessment & Plan Chart Review Chart Review: Acceptable Risk for Surgery Consults Requested none History Surgery Operation Date: 02/12/25 16:30 Proposed Procedures p Esophagogastroduodenoscopy Sumaya Shell MD Height/Weight Height: 5 ft 3 in Weight: 115.9 kg Allergies Allergy/AdvReac Type Severity Reaction Status Date / Time No Known Allergies Allergy Unverified 01/26/25 18:55 Medications Home Medications Medication Instructions Recorded Confirmed Last Taken albuterol sulfate 90 mcg/actuation 90 mcg inhalation DAILY PRN SOB 01/26/25 02/11/25 02/10/25 aerosol inhaler duloxetine 60 mg capsule,delayed 60 mg PO HS 01/26/25 02/11/25 02/10/25 release hydroxychloroquine 200 mg tablet 200 mg PO BID 01/26/25 02/11/25 02/10/25 levothyroxine 150 mcg tablet 150 mcg PO QAM 01/26/25 02/11/25 02/10/25 lisinopril 20 mg tablet 20 mg PO QAM 01/26/25 02/11/25 02/10/25 metoprolol succinate 100 mg 100 mg PO QAM 01/26/25 02/11/25 02/10/25 tablet,extended release 24 hr pantoprazole 40 mg tablet,delayed 40 mg PO 3XWK 01/26/25 02/11/25 02/10/25 release sertraline 25 mg tablet 25 mg PO QAM 01/26/25 02/11/25 02/10/25 aspirin 81 mg tablet,delayed 81 mg PO DAILY 02/11/25 02/11/25 Unknown release atorvastatin 20 mg tablet 20 mg PO HS 02/11/25 02/11/25 02/10/25 cholecalciferol (vitamin D3) 25 25 mcg PO DAILY 02/11/25 02/11/25 02/10/25 mcg (1,000 unit) tablet (Vitamin D3) clopidogrel 75 mg tablet 75 mg PO DAILY 02/11/25 02/11/25 Unknown cyanocobalamin (vitamin B-12) 50 0 mcg PO DAILY 02/11/25 02/11/25 02/10/25 mcg tablet (Vitamin B-12) vitamin B complex 1 cap PO DAILY 02/11/25 02/11/25 02/10/25 Active Medications Generic Name Dose Route Start Last Admin Trade Name Rossi PRN Reason Stop Dose Admin Atorvastatin Calcium 20 mg 02/11/25 21:00 02/11/25 20:55 Atorvastatin 20 Mg Tab PO 03/13/25 20:59 20 mg HS WENDY Administration Cyanocobalamin 1,000 mcg 02/11/25 09:00 02/12/25 07:37 Cyanocobalamin (B-12) 500 Mcg Tablet PO 03/13/25 08:59 1,000 mcg DAILY WENDY Administration Duloxetine HCl 60 mg 02/11/25 21:00 02/11/25 20:55 Duloxetine Hcl 60 Mg Cap PO 03/13/25 20:59 60 mg HS WENDY Administration Hydroxychloroquine Sulfate 200 mg 02/11/25 09:00 02/12/25 07:37 Hydroxychloroquine Sulfate 200 Mg Tab PO 03/13/25 08:59 200 mg BID WENDY Administration Pantoprazole Sodium 40 mg in 10 mls @ 5 mls/min 02/11/25 09:00 02/12/25 07:32 Protonix IV 03/13/25 08:59 5 mls/min BID WENDY Administration Levothyroxine Sodium 150 mcg 02/11/25 06:30 02/12/25 06:08 Levothyroxine Sodium 150 Mcg Tablet PO 03/13/25 06:29 150 mcg DAILYBB WENDY Administration Metoprolol Succinate 100 mg 02/11/25 09:00 02/12/25 10:18 Metoprolol Succ 50mg Ext Rel Tab PO 03/13/25 08:59 100 mg QAM WENDY Administration Sertraline HCl 25 mg 02/11/25 09:00 02/12/25 07:33 Sertraline Hcl 50 Mg Tablet PO 03/13/25 08:59 25 mg QAM WENDY Administration Vitamin B Complex 1 tab 02/11/25 09:00 02/12/25 07:33 Vitamin B Complex Tab PO 03/13/25 08:59 1 tab DAILY WENDY Administration NPO Date Last Intake of Fluids: 02/11/25 Time Last Intake of Fluids: 17:00 Date Last Intake of Solids: 02/10/25 Time Last Intake of Solids: 14:30 Social History Smoking Status: Former smoker Hx Alcohol Use: No Hx Substance Use: No Physical Exam Vital Signs Last Vital Signs Temp 36.5 C 02/12/25 11:54 Pulse 60 02/12/25 11:54 Resp 16 02/12/25 11:54 BP 110/73 02/12/25 11:54 Pulse Ox 95 02/12/25 11:54 O2 Del Method Room Air 02/12/25 11:54 Testing Laboratory Results 02/12/25 06:38 02/12/25 06:38 Urine Color Yellow 02/11/25 10:14 Urine Appearance Clear (Clear) 02/11/25 10:14 Urine pH 5.0 (4.5-7.5) 02/11/25 10:14 Ur Specific [place] 1.011 (1.000-1.030) 02/11/25 10:14 Urine Protein Negative (Negative) 02/11/25 10:14 Urine Glucose (UA) Negative (Negative) 02/11/25 10:14 Urine Ketones Negative (Negative) 02/11/25 10:14 Urine Nitrite Negative (Negative) 02/11/25 10:14 Ur Leukocyte Esterase Negative (Negative) 02/11/25 10:14 Blood Type B Negative 02/11/25 00:24 Antibody Screen POSITIVE A 02/11/25 00:24
--- NOTE | 2025-02-12 12:41 | GI REPORT ---
[facility] Patient: CHADWICK BLOUNT : 1950 Sex at : Female Age: 74 Years Procedure: Upper GI endoscopy Date: 02/12/2025 Attending Physician: Theron Shell MD Referring MD: Isaac Carver DO Indications: - Melena Medications: - Monitored Anesthesia Care Complications: - No immediate complications. Estimated Blood Loss: - Estimated blood loss: None. Procedure: - Prior to the procedure, a History and Physical was performed, and patient medications and allergies were reviewed. The patient's tolerance of previous anesthesia was also reviewed. The risks and benefits of the procedure and the sedation options and risks were discussed with the patient. All questions were answered, and informed consent was obtained. Prior Anticoagulants: The patient has taken Plavix (clopidogrel), last dose was 5 days prior to procedure. ASA Grade Assessment: III - A patient with severe systemic disease. After reviewing the risks and benefits, the patient was deemed in satisfactory condition to undergo the procedure. - The egd scope was introduced through the mouth and advanced to the third part of the duodenum. - The upper GI endoscopy was accomplished without difficulty. - The patient tolerated the procedure well. Findings: - A small hiatal hernia was present. - There were esophageal mucosal changes present in the distal esophagus suspicious for short-segment Rowland's esophagus. The maximum longitudinal extent of these mucosal changes was 2 cm in length. Barretts biopsies NOT done as no blood given due to antibodies and recent plavix use. - Localized moderate inflammation characterized by erythema was found in the gastric antrum. - A few small angioectasias with bleeding on contact were found in the first portion of the duodenum and in the second portion of the duodenum. Coagulation for hemostasis using argon plasma was successful. Impression: - Small hiatal hernia. - Esophageal mucosal changes suspicious for short-segment Rowland's esophagus. - Barretts biopsies NOT done as no blood given due to antibodies and recent plavix use. - Acute gastritis, characterized by erythema. - A few angioectasias in the duodenum. Treated with argon plasma coagulation (APC). - No specimens collected. Recommendation: - Discharge patient to home (ambulatory). - Resume previous diet. - Continue present medications. - Await pathology results. - Return to primary care physician as previously scheduled. - Patient has a contact number available for emergencies. The signs and symptoms of potential delayed complications were discussed with the patient. Return to normal activities tomorrow. Written discharge instructions were provided to the patient. - Pantoprazole 40 mg twice daily IV today. Start a full liquid diet. Hold Plavix for now. No obvious source of bleeding but suspect AVMs as a few noted as the source. These were cauterized. Blood transfusion today once the blood comes in Procedure Code(s): - 80549, Esophagogastroduodenoscopy, flexible, transoral; with control of bleeding, any method Diagnosis Code(s): - K92.1, Melena (includes Hematochezia) - K44.9, Diaphragmatic hernia without obstruction or gangrene - K29.00, Acute gastritis without bleeding - K31.819, Angiodysplasia of stomach and duodenum without bleeding - K22.89, Other specified disease of esophagus CPT(R) - 2022 copyright [employer]. All Rights Reserved. The CPT codes, CCI edits and ICD codes generated are intended as suggestions and were generated based on input data. These codes are preliminary and upon practice managers review may be revised to meet current compliance and payer requirements. The provider is responsible for the final determination of appropriate codes, and modifiers. Theron Shell MD This document has been electronically signed. Note Initiated:02/12/2025 Note Completed:02/12/2025 12:41 PM [email or web address]\[email or web address]\[id number]
--- NOTE | 2025-02-12 13:05 | Anesthesiology Progress Note ---
Date of Service February 12, 2025 Anesthesia Post Procedure Vital Signs Vital Signs: Temp Pulse Pulse Resp BP BP Pulse Ox 02/12/25 12:55 57 L 16 138/67 93 02/12/25 12:40 60 16 109/64 97 02/12/25 11:54 36.5 C 60 16 110/73 95 02/12/25 11:33 36.8 C 61 20 137/69 95 02/12/25 11:00 02/12/25 07:41 36.6 C 68 16 135/76 95 02/12/25 03:34 36.6 C 69 18 111/67 92 02/12/25 00:00 36.5 C 67 18 129/69 93 02/11/25 21:52 71 02/11/25 20:40 02/11/25 19:33 36.7 C 66 18 128/75 95 02/11/25 16:29 36.8 C 62 16 117/74 95 02/11/25 14:48 36.7 C 67 16 122/73 96 02/11/25 14:00 63 02/11/25 13:43 36.5 C 75 16 108/70 95 O2 Del Method 02/12/25 12:55 Room Air 02/12/25 12:40 Room Air 02/12/25 11:54 Room Air 02/12/25 11:33 Room Air 02/12/25 11:00 Room Air 02/12/25 07:41 Room Air 02/12/25 03:34 Room Air 02/12/25 00:00 Room Air 02/11/25 21:52 02/11/25 20:40 Room Air 02/11/25 19:33 Room Air 02/11/25 16:29 Room Air 02/11/25 14:48 02/11/25 14:00 02/11/25 13:43 Transfer of Care Handoff Completed per policy Notes Mental Status: alert / awake / arousable and participated in evaluation Patient Amnestic to Procedure: Yes Nausea / Vomiting: adequately controlled Pain: adequately controlled Airway Patency, RR, SpO2: stable & adequate BP & HR: stable & adequate Hydration State: stable & adequate Anesthetic Complications: no major complications apparent
[2025-02-12] MEDS: KETAMINE HCL 10MG/ML SYR ONE (14:55)
[2025-02-12] MEDS: LIDOCAINE 2% 2 ML VIAL/AMP(20MG/ML) INFIL ONE (15:06)
[2025-02-12] MEDS: PROPOFOL IV EMULSION 10 MG/ML 20 ML VIAL IV ONE (15:07)
[2025-02-13 08:04] VITALS: BP 141/73; PULSE 57; RESP 20; TEMP 98.1; O2SAT 96
--- NOTE | 2025-02-13 09:47 | Discharge Summary ---
Discharge Summary Date of Service February 13, 2025 Principal Dx & Hospital Course #1 = Principal Diagnosis (1) SOB (shortness of breath): 74 year old female with history of HTN, CKD 3, HLD, SLE, recent R eye vision loss recently diagnosed with BRAO and sent on DAPT. Presents with melena, fatigue. Likely UGIB. Prior to admission, she was seen by [facility] ophtho who diagnosed her with a retinal detachment in her R eye. IT is highly unlikely she actually had a BROA after being evaluated by optho. Her Hgb was 6.8 on admission and given 2 PRBCs. Hgb stabilized. S/p EGD yesterday which showed gastritis and AVMs in duodenum. S/p APC. SHe is feeling well today and wishes to go home. Hgb is stable. no further melena or BRBPR. Her DAPT will be DC. Protonix BID x 30 days, then decrease to once daily. SHe will be started on PO Fe supplementation every other day. She was encouraged to f/u with her [facility] optho DESIRAE but patient refused to see [facility]. Yancy santoyo made. She had an episode of lightheadedness this AM, likely due to her anemia. Vitals stable. She was encouraged to have repeat CBC in 2-4 weeks with her PCP. #Melena -Secondary to suspected Upper GI bleed -Hgb 6.8 with baseline 10.9 -Acute on chronic anemia -Acute blood loss anemia -CT AP reviewed -In setting of DAPT use -Hgb improved to 8.0 today following 2 PRBCs #R eye vision loss -Recent admission for vision loss. Thought to be BRAO by neurology and started on DAPT -Evaluated by ophtho as OP and diagnosed with retinal detachment -Her DAPT was continued after this -Given normal MRI brain, very low suspicion that she had a BRAO -With her acute GI bleeding, risks of AC certainly outweigh the benefits Plan -DC AC upon discharge #CKD3 -At baseline -Avoid nephrotoxic agents if possible #Hypothyroidism -Continue synthroid #HTN -resume on DC #SLE -Plaquenil I spent a total of 55 minutes coordinating, documenting, and providing care for this patient excluding time spent in the performance of separately billed services. This included personally reviewing all current laboratories and imaging studies, medical reconciliation, outpatient chart review and discussion with specialists Notes For Next Care Provider Medication Changes From Visit DAPT DC Protonix BID x 4 weeks, then daily Ferrous sulfate every other day Admission HPI Per Admitting Provider History obtained from patient and records. Medical history significant for hypertension, hyperlipidemia, COPD, Rowland's esophagus, SLE on Plaquenil, CRI (baseline creatinine 1.4), hypothyroidism, prediabetes, chronic anemia (baseline hemoglobin 10-11), mood disorder, recent diagnosis of right retinal detachment, past tobacco abuse. Recent confinement 2 weeks ago for strokelike symptoms presenting as progressive right eye vision loss. Concern for branch retinal artery occlusion of the right eye following Neurology evaluation. Patient discharged on dual antiplatelet therapy (aspirin and Plavix) for 3 weeks followed by aspirin monotherapy. Outpatient ophthalmology evaluation recommended on discharge. Patient seen by local larriman from [facility] 4 days ago. Retinal detachment of the right eye noted on exam. Surgery recommended at [email or web address] Patient stated preference for surgery to be done in [place] by local larriman awaiting referral from PCP. 3 days ago, patient noted dizziness described as lightheadedness especially when standing up. Exertional SOB without cough or chest pain. Denies fluid retention. 2 nights ago, patient noted achy lower abdominal pain followed by melena. Patient stopped aspirin and Plavix due to bleeding concerns. Patient intended to mention symptoms to PCP on scheduled appointment this week. Transient syncopal event preceded by lightheadedness at home last night witnessed by family. Patient was just out for a few seconds. No witnessed seizures. No headache or trauma. Patient brought to ER for evaluation. IV Protonix and 1 unit PRBC administered at the ER. Medical History as above 2021 EGD showed Rowland's esophagus C2 M3, hiatal hernia 2021 colonoscopy showed diverticulosis, polyps and ascending colon lipoma Surgical History : Cystoscopy, shoulder surgery, hysterectomy, foot surgery, elbow surgery, vaginal sling procedure, bunion surgery Family History : COPD, cirrhosis, kidney cancer Personal/Social history : Past tobacco abuse, no EtOH intake, seamstress Discharge Exam Vitals and labs reviewed General: Well appearing, NAD HEENT: EOMI, PERRLA Neck: Supple Cardiac: RRR no rubs gallops or murmurs Lungs: CTA no rhonchi wheezing or rales Abd: S NT ND BS positive : Deffered MSK: Full ROM. No obvious deformities Ext: No Edema cyanosis Skin: Warm, Dry Neuro: AOx3 at baseline Psych: Normal Mood Updated Medication List Medication Instructions Recorded Confirmed Type albuterol sulfate 90 mcg/actuation 90 mcg inhalation DAILY PRN SOB 01/26/25 02/11/25 History aerosol inhaler duloxetine 60 mg capsule,delayed 60 mg PO HS 01/26/25 02/11/25 History release hydroxychloroquine 200 mg tablet 200 mg PO BID 01/26/25 02/11/25 History levothyroxine 150 mcg tablet 150 mcg PO QAM 01/26/25 02/11/25 History lisinopril 20 mg tablet 20 mg PO QAM 01/26/25 02/11/25 History metoprolol succinate 100 mg 100 mg PO QAM 01/26/25 02/11/25 History tablet,extended release 24 hr pantoprazole 40 mg tablet,delayed 40 mg PO 3XWK 01/26/25 02/11/25 History release sertraline 25 mg tablet 25 mg PO QAM 01/26/25 02/11/25 History aspirin 81 mg tablet,delayed 81 mg PO DAILY 02/11/25 02/11/25 History release atorvastatin 20 mg tablet 20 mg PO HS 02/11/25 02/11/25 History cholecalciferol (vitamin D3) 25 25 mcg PO DAILY 02/11/25 02/11/25 History mcg (1,000 unit) tablet (Vitamin D3) clopidogrel 75 mg tablet 75 mg PO DAILY 02/11/25 02/11/25 History cyanocobalamin (vitamin B-12) 50 0 mcg PO DAILY 02/11/25 02/11/25 History mcg tablet (Vitamin B-12) vitamin B complex 1 cap PO DAILY 02/11/25 02/11/25 History ferrous sulfate 325 mg (65 mg 325 mg PO Q OTHER DAY #15 tabs 02/13/25 Rx iron) tablet pantoprazole 40 mg tablet,delayed 40 mg PO BID 30 days #60 tabs 02/13/25 Rx release (Protonix) Hospital Stay Data Consultations 02/11/25 01:47 ED Decision to Admit Stat 02/11/25 05:11 Consult Gastroenterology Routine Procedures Performed Operation Date: 02/12/25 16:30 Actual Procedures p EGD Hemostasis - Theron Shell MD Diagnostic Imagining Performed 02/11/25 02:36 CT Abd and Pelvis [CT abd pelvis wo con] Stat Pending Results Patient Have Any Pending Studies at Discharge: No Discharge Instructions Given to Patient (Per Discharging Provider) Take protonix twice daily x 1 month, then decrease to once daily. Stop taking plavix and aspirin. take iron supplement every other day. Follow up with an eye doctor DESIRAE. referral made for yancy. If you get constipated, take over the counter miralax once daily Total Time Total Time Spent Total Time Spent (In Minutes): 45
--- NOTE | 2025-02-13 10:06 | Communication Note ---
Date of Service: February 13, 2025 Informed patient of EGD results today. Patient noted to have esophagitis with AVMs. She denies any further bleeding. Hgb stable at 8.0g/dl. Recommend ongoing treatment with PPI therapy for esophagitis and gastritis. We did not collect biopsies d/t Plavix use. Recommend ongoing follow up with her outside GI specialist d/t history of Barretts esophagitis. Understanding voiced.
== END 2025-02-13 11:42 | disposition home or self-care (01) | DRG 378 ==
LOC: ED 23:55 → 2N 02-11 01:59